=== PATIENT | male | born 1935 | race Caucasian/White ===

== ENCOUNTER 2017-11-03 20:46 | Inpatient (IN) | payer MEDICARE, BC ==
[2017-11-03] MEDS: ONDANSETRON 4 MG INJ IV (21:08)
[2017-11-03] MEDS: morphine 4 MG/ML VIAL IV (21:08)
[2017-11-03 21:25] LABS: ADD MAN DIFF? NO
[2017-11-03 21:26] LABS: BASOPHIL # 0.1 10^3/ul (0.0-0.1); BASOPHILS % 0.4 % (0.0-2.0); EOSINOPHILS # 0.2 10^3/ul (0.0-0.5); EOSINOPHILS % 1.4 % (0.0-7.0); HEMATOCRIT 31.4 % (42.0-52.0); HEMOGLOBIN 9.9 g/dl (14.0-18.0); LYMPHOCYTES # 1.5 10^3/ul (0.8-2.9); LYMPHOCYTES % 10.9 % (15.0-51.0); MEAN CORPUSCULAR HEMOGLOBIN 30.2 pg (29.0-33.0); MEAN CORPUSCULAR HGB CONC 31.5 g/dl (32.0-37.0); MEAN CORPUSCULAR VOLUME 95.7 fl (82.0-101.0); MEAN PLATELET VOLUME 8.4 fl (7.4-10.4); MONOCYTE # 0.9 10^3/ul (0.3-0.9); MONOCYTES % 6.3 % (0.0-11.0); NEUTROPHIL # 11.2 10^3/ul (1.6-7.5); NEUTROPHILS % 79.9 % (39.0-77.0); PLATELET COUNT 292 10^3/UL (140-415); RED BLOOD COUNT 3.28 10^6/ul (4.70-6.10); RED CELL DISTRIBUTION WIDTH 15.9 % (11.5-14.5)
[2017-11-03 21:47] LABS: ALANINE AMINOTRANSFERASE 20 IU/L (13-69); ALBUMIN 3.8 g/dl (3.3-4.9); ALKALINE PHOSPHATASE 83 IU/L (42-121); ANION GAP 20 (8-16); ASPARTATE AMINO TRANSFERASE 13 IU/L (15-46); BLOOD UREA NITROGEN 36 mg/dl (7-20); CALCIUM 8.8 mg/dl (8.4-10.2); CARBON DIOXIDE 30 mmol/L (21-31); CHLORIDE 92 mmol/L (97-110); CREATININE 4.99 mg/dl (0.61-1.24); GLUCOSE 105 mg/dl (70-220); LIPASE 40 U/L (23-300); POTASSIUM 4.5 mmol/L (3.5-5.1); SODIUM 137 mmol/L (135-144); TOTAL PROTEIN 7.6 g/dl (6.1-8.1)
[2017-11-03] MEDS: HYDROmorphONE 1 MG/ML SYG IV (21:56)
[2017-11-04] MEDS: CEFTRIAXONE 1 GM/50 ML (PMX) 50 ML IVPB (00:17)
[2017-11-04] MEDS ORDERED: ACETAMINOPHEN 325 MG TAB PO (00:30)
[2017-11-04] MEDS ORDERED: ONDANSETRON 4 MG INJ IV (00:30)
[2017-11-04] MEDS ORDERED: VANCOMYCIN IV PER PHARMACY XX (01:00)
[2017-11-04] MEDS: VANCOMYCIN 1.25 GM in SOD CHLORIDE 0.45% 250 ML IVPB (01:12)
[2017-11-04 02:10] LABS: IRON 31 ug/dl (35-150)
[2017-11-04 02:11] LABS: MAGNESIUM 1.8 mg/dl (1.7-2.5)
[2017-11-04] MEDS: HYDROmorphONE 1 MG/ML SYG IV ×6 (02:18→23:25)
[2017-11-04 02:20] LABS: % IRON SATURATION 20 % SAT (22-52); TOTAL IRON BINDING CAPACITY 153 ug/dl (241-421)
[2017-11-04] MEDS: PANTOPRAZOLE (EC) 40 MG TAB PO (06:30)
[2017-11-04] MEDS: ALBUTEROL 0.083% (NEB) 2.5 MG/3 ML AMP HHN ×2 (08:00→15:56)
[2017-11-04] MEDS: IPRATROPIUM (NEB) 0.5 MG/2.5 ML AMP HHN ×2 (08:00→15:56)
[2017-11-04] MEDS: ONDANSETRON 4 MG INJ IV (09:36)
[2017-11-04] MEDS: CYANOCOBALAMIN 500 MCG TAB PO (09:41)
[2017-11-04] MEDS: FOLIC ACID 1 MG TAB PO (09:41)
[2017-11-04] MEDS: ASPIRIN (EC) 81 MG TAB PO (09:41)
[2017-11-04] MEDS: NIFEdipine (XL) 30 MG TAB PO ×2 (09:41→20:46)
[2017-11-04] MEDS: VALSARTAN 160 MG TAB PO (09:41)
[2017-11-04] MEDS: TIOTROPIUM 18 MCG CAPSULE INHA DEV INH (09:42)
[2017-11-04 09:47] LABS: ADD MAN DIFF? NO
[2017-11-04 10:00] LABS: WHITE BLOOD COUNT 16.1 10^3/ul (4.8-10.8)
[2017-11-04 10:00] LABS: BASOPHIL # 0.1 10^3/ul (0.0-0.1); BASOPHILS % 0.4 % (0.0-2.0); EOSINOPHILS # 0.4 10^3/ul (0.0-0.5); EOSINOPHILS % 2.4 % (0.0-7.0); HEMATOCRIT 32.1 % (42.0-52.0); LYMPHOCYTES # 2.5 10^3/ul (0.8-2.9); LYMPHOCYTES % 15.3 % (15.0-51.0); MEAN CORPUSCULAR HEMOGLOBIN 30.1 pg (29.0-33.0); MEAN CORPUSCULAR HGB CONC 31.2 g/dl (32.0-37.0); MEAN CORPUSCULAR VOLUME 96.7 fl (82.0-101.0); MONOCYTE # 1.2 10^3/ul (0.3-0.9); MONOCYTES % 7.7 % (0.0-11.0); NEUTROPHIL # 11.8 10^3/ul (1.6-7.5); NEUTROPHILS % 73.3 % (39.0-77.0); PLATELET COUNT 318 10^3/UL (140-415); RED BLOOD COUNT 3.32 10^6/ul (4.70-6.10)
[2017-11-04 10:23] LABS: ANION GAP 22 (8-16); BLOOD UREA NITROGEN 42 mg/dl (7-20); CALCIUM 8.7 mg/dl (8.4-10.2); CARBON DIOXIDE 28 mmol/L (21-31); CHLORIDE 93 mmol/L (97-110); CREATININE 5.85 mg/dl (0.61-1.24); GLUCOSE 84 mg/dl (70-220); SODIUM 138 mmol/L (135-144)
[2017-11-04] MEDS: ACETAMINOPHEN 325 MG TAB PO (12:12)
[2017-11-04] MEDS: ATORVASTATIN 80 MG TAB PO (20:46)
[2017-11-04] MEDS: TAMSULOSIN (SR) 0.4 MG CAP PO (20:46)
[2017-11-05] MEDS: HYDROmorphONE 1 MG/ML SYG IV ×3 (03:12→09:48)
[2017-11-05] MEDS: PANTOPRAZOLE (EC) 40 MG TAB PO (06:09)
[2017-11-05 06:22] LABS: ADD MAN DIFF? NO
[2017-11-05 06:37] LABS: WHITE BLOOD COUNT 15.7 10^3/ul (4.8-10.8)
[2017-11-05 06:37] LABS: BASOPHIL # 0.1 10^3/ul (0.0-0.1); BASOPHILS % 0.4 % (0.0-2.0); EOSINOPHILS # 0.3 10^3/ul (0.0-0.5); HEMATOCRIT 28.6 % (42.0-52.0); HEMOGLOBIN 8.9 g/dl (14.0-18.0); LYMPHOCYTES % 12.7 % (15.0-51.0); MEAN CORPUSCULAR HGB CONC 31.1 g/dl (32.0-37.0); MEAN CORPUSCULAR VOLUME 96.3 fl (82.0-101.0); MEAN PLATELET VOLUME 8.8 fl (7.4-10.4); MONOCYTE # 1.1 10^3/ul (0.3-0.9); MONOCYTES % 7.1 % (0.0-11.0); NEUTROPHIL # 12.1 10^3/ul (1.6-7.5); NEUTROPHILS % 76.7 % (39.0-77.0); PLATELET COUNT 296 10^3/UL (140-415); RED BLOOD COUNT 2.97 10^6/ul (4.70-6.10); RED CELL DISTRIBUTION WIDTH 15.6 % (11.5-14.5)
[2017-11-05 07:12] LABS: ANION GAP 21 (8-16); BLOOD UREA NITROGEN 62 mg/dl (7-20); CALCIUM 8.6 mg/dl (8.4-10.2); CARBON DIOXIDE 28 mmol/L (21-31); CHLORIDE 92 mmol/L (97-110); CREATININE 7.58 mg/dl (0.61-1.24); GLUCOSE 87 mg/dl (70-220); PHOSPHORUS 6.8 mg/dl (2.5-4.9); SODIUM 135 mmol/L (135-144)
[2017-11-05 07:13] LABS: POTASSIUM 5.5 mmol/L (3.5-5.1)
[2017-11-05] MEDS: ALBUTEROL 0.083% (NEB) 2.5 MG/3 ML AMP HHN ×2 (08:33→16:33)
[2017-11-05] MEDS: IPRATROPIUM (NEB) 0.5 MG/2.5 ML AMP HHN ×2 (08:33→16:33)
[2017-11-05] MEDS: CYANOCOBALAMIN 500 MCG TAB PO (08:55)
[2017-11-05] MEDS: ASPIRIN (EC) 81 MG TAB PO (08:55)
[2017-11-05] MEDS: TIOTROPIUM 18 MCG CAPSULE INHA DEV INH (08:55)
[2017-11-05] MEDS: oxyCODONE (CR) 20 MG TAB [oxyCONTIN] PO (08:55)
[2017-11-05] MEDS: FOLIC ACID 1 MG TAB PO (08:55)
[2017-11-05] MEDS: NIFEdipine (XL) 30 MG TAB PO ×2 (09:00→21:00)
[2017-11-05] MEDS: VALSARTAN 160 MG TAB PO (09:00)
[2017-11-05 10:47] LABS: AADO2 Arterial 61.5 mmHg (7.0-24.0); Allen Test ACCEPTAB; Arterial Base Excess 4.1 mmol/L (-3.0-3); Arterial Blood Gas Oxygen Sat 95.7 mmHG (95.0-100.0); Arterial COHb 1.8 % (0.0-3.0); Arterial Fraction of Oxyhgb 93.7 % (93.0-99.0); Arterial MetHb 0.3 % (0.0-1.5); Arterial Total Hemglobin 9.7 g/dl (12.0-18.0); Arterial pCO2 45.6 mmhg (35-45); MODE NASAL CANNULA; Site Right Radial
[2017-11-05] MEDS: HYDROCODONE/APAP (5/325) TAB PO (11:20)
[2017-11-05] MEDS: METHADONE (1 MG/1 ML PO SYG) PO ×3 (13:28→23:03)
[2017-11-05] MEDS: ACETAMINOPHEN 1000MG/100ML IV 100 ML IVPB (14:27)
[2017-11-05] MEDS: HYDROmorphONE 0.2 MG/ML PCA IV (16:38)
[2017-11-05] MEDS: TAMSULOSIN (SR) 0.4 MG CAP PO (21:06)
[2017-11-05] MEDS: ATORVASTATIN 80 MG TAB PO (21:06)
[2017-11-05] MEDS: ACETAMINOPHEN 325 MG TAB PO (21:06)
[2017-11-05 21:13] LABS: HEPATITIS B SURFACE ANTIGEN NEGATIVE (NEGATIVE)
[2017-11-05 21:31] LABS: HEPATITIS B SURFACE ANTIBODY POSITIVE (NEGATIVE)
[2017-11-06] MEDS: NIFEdipine (XL) 30 MG TAB PO ×3 (00:53→21:10)
[2017-11-06] MEDS: HYDROmorphONE 0.2 MG/ML PCA IV ×2 (05:23→20:58)
[2017-11-06] MEDS: PANTOPRAZOLE (EC) 40 MG TAB PO (06:05)
[2017-11-06] MEDS: METHADONE (1 MG/1 ML PO SYG) PO ×3 (06:05→23:54)
[2017-11-06 06:09] LABS: ADD MAN DIFF? NO
[2017-11-06 06:15] LABS: WHITE BLOOD COUNT 13.1 10^3/ul (4.8-10.8)
[2017-11-06 06:15] LABS: BASOPHIL # 0.1 10^3/ul (0.0-0.1); BASOPHILS % 0.5 % (0.0-2.0); EOSINOPHILS # 0.3 10^3/ul (0.0-0.5); EOSINOPHILS % 2.4 % (0.0-7.0); HEMATOCRIT 33.1 % (42.0-52.0); HEMOGLOBIN 10.4 g/dl (14.0-18.0); LYMPHOCYTES # 1.6 10^3/ul (0.8-2.9); LYMPHOCYTES % 12.1 % (15.0-51.0); MEAN CORPUSCULAR HEMOGLOBIN 30.4 pg (29.0-33.0); MEAN CORPUSCULAR HGB CONC 31.4 g/dl (32.0-37.0); MEAN CORPUSCULAR VOLUME 96.8 fl (82.0-101.0); MEAN PLATELET VOLUME 8.7 fl (7.4-10.4); MONOCYTES % 7.5 % (0.0-11.0); NEUTROPHIL # 10.1 10^3/ul (1.6-7.5); NEUTROPHILS % 76.9 % (39.0-77.0); PLATELET COUNT 312 10^3/UL (140-415); RED BLOOD COUNT 3.42 10^6/ul (4.70-6.10); RED CELL DISTRIBUTION WIDTH 15.9 % (11.5-14.5)
[2017-11-06 06:51] LABS: ANION GAP 19 (8-16); BLOOD UREA NITROGEN 35 mg/dl (7-20); CALCIUM 8.9 mg/dl (8.4-10.2); CARBON DIOXIDE 31 mmol/L (21-31); CHLORIDE 96 mmol/L (97-110); GLUCOSE 94 mg/dl (70-220); PHOSPHORUS 4.9 mg/dl (2.5-4.9); POTASSIUM 4.5 mmol/L (3.5-5.1); SODIUM 141 mmol/L (135-144)
[2017-11-06 07:49] LABS: VANCOMYCIN,RANDOM 17.8 ug/ml
[2017-11-06] MEDS: TIOTROPIUM 18 MCG CAPSULE INHA DEV INH (09:23)
[2017-11-06] MEDS: ALBUTEROL 0.083% (NEB) 2.5 MG/3 ML AMP HHN ×2 (09:24→15:28)
[2017-11-06] MEDS: IPRATROPIUM (NEB) 0.5 MG/2.5 ML AMP HHN ×2 (09:24→15:28)
[2017-11-06] MEDS: BISACODYL (EC) 5 MG TAB PO ×2 (09:24→21:09)
[2017-11-06] MEDS: ASPIRIN (EC) 81 MG TAB PO (09:24)
[2017-11-06] MEDS: VALSARTAN 160 MG TAB PO (09:24)
[2017-11-06] MEDS: FOLIC ACID 1 MG TAB PO (09:24)
[2017-11-06] MEDS: CYANOCOBALAMIN 500 MCG TAB PO (09:25)
[2017-11-06] MEDS: ACETAMINOPHEN 325 MG TAB PO (18:09)
[2017-11-06] MEDS: TAMSULOSIN (SR) 0.4 MG CAP PO (21:07)
[2017-11-06] MEDS: ATORVASTATIN 80 MG TAB PO (21:10)
[2017-11-06] MEDS: VANCOMYCIN 1 GM 250 ML IVPB (23:54)
[2017-11-07] MEDS: SOD FERRIC GLUC COMPLX 125 MG in SOD CHLORIDE 0.9% 100 ML IVPB (03:15)
[2017-11-07] MEDS: ACETAMINOPHEN 325 MG TAB PO (04:38)
[2017-11-07] MEDS: PANTOPRAZOLE (EC) 40 MG TAB PO (06:04)
[2017-11-07] MEDS: METHADONE (1 MG/1 ML PO SYG) PO ×3 (06:04→21:25)
[2017-11-07 08:48] LABS: ADD MAN DIFF? NO
[2017-11-07 08:52] LABS: BASOPHIL # 0.1 10^3/ul (0.0-0.1); BASOPHILS % 0.4 % (0.0-2.0); EOSINOPHILS # 0.3 10^3/ul (0.0-0.5); EOSINOPHILS % 2.1 % (0.0-7.0); HEMATOCRIT 28.8 % (42.0-52.0); HEMOGLOBIN 9.1 g/dl (14.0-18.0); LYMPHOCYTES # 1.8 10^3/ul (0.8-2.9); LYMPHOCYTES % 12.9 % (15.0-51.0); MEAN CORPUSCULAR HEMOGLOBIN 30.3 pg (29.0-33.0); MEAN CORPUSCULAR HGB CONC 31.6 g/dl (32.0-37.0); MEAN PLATELET VOLUME 8.5 fl (7.4-10.4); MONOCYTES % 7.6 % (0.0-11.0); NEUTROPHIL # 10.4 10^3/ul (1.6-7.5); NEUTROPHILS % 76.1 % (39.0-77.0); PLATELET COUNT 288 10^3/UL (140-415); RED CELL DISTRIBUTION WIDTH 15.9 % (11.5-14.5)
[2017-11-07 08:52] LABS: WHITE BLOOD COUNT 13.6 10^3/ul (4.8-10.8)
[2017-11-07 09:16] LABS: ANION GAP 19 (8-16); BLOOD UREA NITROGEN 51 mg/dl (7-20); CALCIUM 8.5 mg/dl (8.4-10.2); CARBON DIOXIDE 25 mmol/L (21-31); CHLORIDE 96 mmol/L (97-110); CREATININE 7.93 mg/dl (0.61-1.24); GLUCOSE 96 mg/dl (70-220); PHOSPHORUS 6.4 mg/dl (2.5-4.9); POTASSIUM 4.9 mmol/L (3.5-5.1); SODIUM 135 mmol/L (135-144)
[2017-11-07] MEDS: ALBUTEROL 0.083% (NEB) 2.5 MG/3 ML AMP HHN ×2 (09:29→15:17)
[2017-11-07] MEDS: IPRATROPIUM (NEB) 0.5 MG/2.5 ML AMP HHN ×2 (09:29→15:17)
[2017-11-07] MEDS: CYANOCOBALAMIN 500 MCG TAB PO (12:35)
[2017-11-07] MEDS: NIFEdipine (XL) 30 MG TAB PO ×2 (12:35→20:49)
[2017-11-07] MEDS: FOLIC ACID 1 MG TAB PO (12:35)
[2017-11-07] MEDS: ASPIRIN (EC) 81 MG TAB PO (12:35)
[2017-11-07] MEDS: TIOTROPIUM 18 MCG CAPSULE INHA DEV INH (12:35)
[2017-11-07] MEDS: BISACODYL (EC) 5 MG TAB PO ×2 (12:35→20:50)
[2017-11-07] MEDS: VALSARTAN 160 MG TAB PO (12:35)
[2017-11-07] MEDS: HYDROmorphONE 0.2 MG/ML PCA IV ×2 (14:36→22:55)
[2017-11-07] MEDS: HYDROmorphONE 0.5 MG/0.5 ML SYG IV (14:48)
[2017-11-07] MEDS: TAMSULOSIN (SR) 0.4 MG CAP PO (20:49)
[2017-11-07] MEDS: ATORVASTATIN 80 MG TAB PO (20:50)
[2017-11-08] MEDS: SOD FERRIC GLUC COMPLX 125 MG in SOD CHLORIDE 0.9% 100 ML IVPB (02:03)
[2017-11-08] MEDS: HYDROmorphONE 0.2 MG/ML PCA IV ×2 (03:08→14:57)
[2017-11-08] MEDS: PANTOPRAZOLE (EC) 40 MG TAB PO (06:18)
[2017-11-08] MEDS: METHADONE (1 MG/1 ML PO SYG) PO ×3 (06:18→23:38)
[2017-11-08 06:59] LABS: ADD MAN DIFF? NO
[2017-11-08 07:08] LABS: BASOPHIL # 0.1 10^3/ul (0.0-0.1); BASOPHILS % 0.5 % (0.0-2.0); EOSINOPHILS # 0.3 10^3/ul (0.0-0.5); EOSINOPHILS % 1.9 % (0.0-7.0); HEMATOCRIT 29.1 % (42.0-52.0); LYMPHOCYTES # 1.8 10^3/ul (0.8-2.9); LYMPHOCYTES % 13.2 % (15.0-51.0); MEAN CORPUSCULAR HEMOGLOBIN 29.8 pg (29.0-33.0); MEAN CORPUSCULAR HGB CONC 30.9 g/dl (32.0-37.0); MEAN CORPUSCULAR VOLUME 96.4 fl (82.0-101.0); MEAN PLATELET VOLUME 8.6 fl (7.4-10.4); MONOCYTE # 1.1 10^3/ul (0.3-0.9); MONOCYTES % 7.9 % (0.0-11.0); NEUTROPHIL # 10.2 10^3/ul (1.6-7.5); NEUTROPHILS % 75.8 % (39.0-77.0); PLATELET COUNT 265 10^3/UL (140-415); RED BLOOD COUNT 3.02 10^6/ul (4.70-6.10); RED CELL DISTRIBUTION WIDTH 15.7 % (11.5-14.5)
[2017-11-08 07:08] LABS: WHITE BLOOD COUNT 13.4 10^3/ul (4.8-10.8)
[2017-11-08 07:35] LABS: ANION GAP 22 (8-16); BLOOD UREA NITROGEN 65 mg/dl (7-20); CALCIUM 8.4 mg/dl (8.4-10.2); CARBON DIOXIDE 23 mmol/L (21-31); CHLORIDE 97 mmol/L (97-110); CREATININE 9.26 mg/dl (0.61-1.24); GLUCOSE 86 mg/dl (70-220); PHOSPHORUS 7.2 mg/dl (2.5-4.9); SODIUM 137 mmol/L (135-144)
[2017-11-08 07:40] LABS: POTASSIUM 5.3 mmol/L (3.5-5.1)
[2017-11-08] MEDS: ALBUTEROL 0.083% (NEB) 2.5 MG/3 ML AMP HHN ×2 (08:14→16:07)
[2017-11-08] MEDS: IPRATROPIUM (NEB) 0.5 MG/2.5 ML AMP HHN ×2 (08:14→16:07)
[2017-11-08] MEDS: ASPIRIN (EC) 81 MG TAB PO (15:00)
[2017-11-08] MEDS: VALSARTAN 160 MG TAB PO (15:00)
[2017-11-08] MEDS: FOLIC ACID 1 MG TAB PO (15:00)
[2017-11-08] MEDS: NIFEdipine (XL) 30 MG TAB PO ×2 (15:00→20:50)
[2017-11-08] MEDS: CYANOCOBALAMIN 500 MCG TAB PO (15:00)
[2017-11-08] MEDS: TIOTROPIUM 18 MCG CAPSULE INHA DEV INH (15:00)
[2017-11-08] MEDS: BISACODYL (EC) 5 MG TAB PO ×2 (15:00→20:49)
[2017-11-08] MEDS: EPOETIN 10000 UNITS/1 ML INJ (ESRD) SC (18:24)
[2017-11-08] MEDS: ATORVASTATIN 80 MG TAB PO (20:48)
[2017-11-08] MEDS: TAMSULOSIN (SR) 0.4 MG CAP PO (20:49)
[2017-11-08] MEDS: GABAPENTIN 400 MG CAP PO (20:49)
[2017-11-09] MEDS: SOD FERRIC GLUC COMPLX 125 MG in SOD CHLORIDE 0.9% 100 ML IVPB (05:02)
[2017-11-09] MEDS: METHADONE (1 MG/1 ML PO SYG) PO ×3 (06:50→21:27)
[2017-11-09] MEDS: PANTOPRAZOLE (EC) 40 MG TAB PO (06:50)
[2017-11-09 07:13] LABS: VANCOMYCIN,RANDOM 20.6 ug/ml
[2017-11-09] MEDS: IPRATROPIUM (NEB) 0.5 MG/2.5 ML AMP HHN ×2 (07:57→15:38)
[2017-11-09] MEDS: ALBUTEROL 0.083% (NEB) 2.5 MG/3 ML AMP HHN ×2 (07:58→15:38)
[2017-11-09] MEDS: CYANOCOBALAMIN 500 MCG TAB PO (09:00)
[2017-11-09] MEDS: TIOTROPIUM 18 MCG CAPSULE INHA DEV INH (09:00)
[2017-11-09] MEDS: BISACODYL (EC) 5 MG TAB PO ×2 (09:00→20:25)
[2017-11-09] MEDS: GABAPENTIN 400 MG CAP PO ×3 (09:00→20:25)
[2017-11-09] MEDS: NIFEdipine (XL) 30 MG TAB PO ×2 (09:00→20:25)
[2017-11-09] MEDS: VALSARTAN 160 MG TAB PO (09:00)
[2017-11-09] MEDS: FOLIC ACID 1 MG TAB PO (09:00)
[2017-11-09] MEDS: ASPIRIN (EC) 81 MG TAB PO (09:00)
[2017-11-09 10:16] LABS: INR 1.12; PARTIAL THROMBOPLASTIN TIME 43.1 Sec (25.0-35.0); PROTIME 14.6 Sec (11.9-14.9); PT RATIO 1.1
[2017-11-09] MEDS: HYDROmorphONE 0.2 MG/ML PCA IV (15:12)
[2017-11-09] MEDS: TAMSULOSIN (SR) 0.4 MG CAP PO (20:25)
[2017-11-09] MEDS: ATORVASTATIN 80 MG TAB PO (20:25)
[2017-11-10] MEDS: HYDROmorphONE 0.2 MG/ML PCA IV ×2 (02:30→14:46)
[2017-11-10] MEDS: PANTOPRAZOLE (EC) 40 MG TAB PO (05:54)
[2017-11-10] MEDS: METHADONE (1 MG/1 ML PO SYG) PO ×3 (05:54→21:28)
[2017-11-10] MEDS ORDERED: ALBUMIN HUMAN 25% 50 ML IV (07:30)
[2017-11-10 08:22] LABS: ADD MAN DIFF? NO
[2017-11-10 08:33] LABS: BASOPHIL # 0.1 10^3/ul (0.0-0.1); BASOPHILS % 0.4 % (0.0-2.0); EOSINOPHILS # 0.3 10^3/ul (0.0-0.5); HEMATOCRIT 29.6 % (42.0-52.0); HEMOGLOBIN 9.1 g/dl (14.0-18.0); LYMPHOCYTES # 2.3 10^3/ul (0.8-2.9); LYMPHOCYTES % 15.2 % (15.0-51.0); MEAN CORPUSCULAR HEMOGLOBIN 30.5 pg (29.0-33.0); MEAN CORPUSCULAR HGB CONC 30.7 g/dl (32.0-37.0); MEAN CORPUSCULAR VOLUME 99.3 fl (82.0-101.0); MEAN PLATELET VOLUME 8.8 fl (7.4-10.4); MONOCYTE # 1.4 10^3/ul (0.3-0.9); MONOCYTES % 9.2 % (0.0-11.0); NEUTROPHIL # 11.1 10^3/ul (1.6-7.5); NEUTROPHILS % 72.7 % (39.0-77.0); PLATELET COUNT 286 10^3/UL (140-415); RED BLOOD COUNT 2.98 10^6/ul (4.70-6.10); RED CELL DISTRIBUTION WIDTH 15.9 % (11.5-14.5)
[2017-11-10 08:33] LABS: WHITE BLOOD COUNT 15.2 10^3/ul (4.8-10.8)
[2017-11-10] MEDS: BISACODYL (EC) 5 MG TAB PO ×2 (08:58→21:29)
[2017-11-10] MEDS: CYANOCOBALAMIN 500 MCG TAB PO (08:58)
[2017-11-10] MEDS: FOLIC ACID 1 MG TAB PO (08:58)
[2017-11-10] MEDS: NIFEdipine (XL) 30 MG TAB PO ×2 (08:58→21:29)
[2017-11-10] MEDS: ASPIRIN (EC) 81 MG TAB PO (08:58)
[2017-11-10] MEDS: GABAPENTIN 400 MG CAP PO ×3 (08:59→21:29)
[2017-11-10] MEDS: VALSARTAN 160 MG TAB PO (08:59)
[2017-11-10 09:03] LABS: ANION GAP 20 (8-16); BLOOD UREA NITROGEN 55 mg/dl (7-20); CARBON DIOXIDE 28 mmol/L (21-31); CHLORIDE 97 mmol/L (97-110); CREATININE 8.81 mg/dl (0.61-1.24); GLUCOSE 89 mg/dl (70-220); PHOSPHORUS 7.5 mg/dl (2.5-4.9); POTASSIUM 5.4 mmol/L (3.5-5.1); SODIUM 140 mmol/L (135-144)
[2017-11-10] MEDS: ALBUTEROL 0.083% (NEB) 2.5 MG/3 ML AMP HHN ×2 (09:05→16:00)
[2017-11-10] MEDS: IPRATROPIUM (NEB) 0.5 MG/2.5 ML AMP HHN ×2 (09:05→16:00)
[2017-11-10] MEDS: TIOTROPIUM 18 MCG CAPSULE INHA DEV INH (11:57)
[2017-11-10] MEDS: EPOETIN 10000 UNITS/1 ML INJ (ESRD) SC (17:49)
[2017-11-10] MEDS: ATORVASTATIN 80 MG TAB PO (21:29)
[2017-11-10] MEDS: TAMSULOSIN (SR) 0.4 MG CAP PO (21:29)
[2017-11-11] MEDS: VANCOMYCIN 750 MG in DEXTROSE 5% 150 ML IVPB (00:33)
[2017-11-11] MEDS: HYDROmorphONE 0.2 MG/ML PCA IV (02:12)
[2017-11-11] MEDS: METHADONE (1 MG/1 ML PO SYG) PO ×3 (05:52→22:00)
[2017-11-11] MEDS: PANTOPRAZOLE (EC) 40 MG TAB PO (06:38)
[2017-11-11] MEDS: IPRATROPIUM (NEB) 0.5 MG/2.5 ML AMP HHN ×2 (08:12→15:51)
[2017-11-11] MEDS: ALBUTEROL 0.083% (NEB) 2.5 MG/3 ML AMP HHN ×2 (08:12→15:51)
[2017-11-11] MEDS: FOLIC ACID 1 MG TAB PO (08:33)
[2017-11-11] MEDS: ASPIRIN (EC) 81 MG TAB PO (08:33)
[2017-11-11] MEDS: VALSARTAN 160 MG TAB PO (08:33)
[2017-11-11] MEDS: BISACODYL (EC) 5 MG TAB PO ×2 (08:33→20:42)
[2017-11-11] MEDS: CYANOCOBALAMIN 500 MCG TAB PO (08:33)
[2017-11-11] MEDS: GABAPENTIN 400 MG CAP PO ×3 (08:33→20:42)
[2017-11-11] MEDS: NIFEdipine (XL) 30 MG TAB PO ×2 (08:33→20:43)
[2017-11-11] MEDS: TIOTROPIUM 18 MCG CAPSULE INHA DEV INH (08:34)
[2017-11-11] MEDS: ONDANSETRON 4 MG INJ IV (09:22)
[2017-11-11 10:04] LABS: AADO2 Arterial 62.7 mmHg (7.0-24.0); Allen Test ACCEPTAB; Arterial Blood Gas Oxygen Sat 89.7 mmHG (95.0-100.0); Arterial Fraction of Oxyhgb 87.6 % (93.0-99.0); Arterial MetHb 0.3 % (0.0-1.5); Arterial Total Hemglobin 10.2 g/dl (12.0-18.0); Arterial pCO2 57.6 mmhg (35-45); MODE NASAL CANNULA; Site Right Radial
[2017-11-11] MEDS ORDERED: NALOXONE (0.4 MG/ML) INJ (17:48)
[2017-11-11] MEDS: NALOXONE (0.4 MG/ML) INJ IV (18:02)
[2017-11-11] MEDS: ATORVASTATIN 80 MG TAB PO (20:42)
[2017-11-11] MEDS: TAMSULOSIN (SR) 0.4 MG CAP PO (20:42)
[2017-11-12] MEDS ORDERED: PENDING SANTYL ORDER FOR WOUND CARE XX (03:00)
[2017-11-12] MEDS: METHADONE (1 MG/1 ML PO SYG) PO (05:28)
[2017-11-12] MEDS: PANTOPRAZOLE (EC) 40 MG TAB PO (05:28)
[2017-11-12] MEDS: ACETAMINOPHEN 325 MG TAB PO (05:35)
[2017-11-12 06:38] LABS: ADD MAN DIFF? NO
[2017-11-12 06:43] LABS: WHITE BLOOD COUNT 14.4 10^3/ul (4.8-10.8)
[2017-11-12 06:43] LABS: BASOPHILS % 0.2 % (0.0-2.0); EOSINOPHILS % 0.3 % (0.0-7.0); HEMATOCRIT 27.6 % (42.0-52.0); HEMOGLOBIN 8.5 g/dl (14.0-18.0); LYMPHOCYTES # 1.1 10^3/ul (0.8-2.9); LYMPHOCYTES % 7.9 % (15.0-51.0); MEAN CORPUSCULAR HGB CONC 30.8 g/dl (32.0-37.0); MEAN CORPUSCULAR VOLUME 97.5 fl (82.0-101.0); MONOCYTE # 1.1 10^3/ul (0.3-0.9); MONOCYTES % 7.4 % (0.0-11.0); NEUTROPHILS % 83.6 % (39.0-77.0); PLATELET COUNT 250 10^3/UL (140-415); RED BLOOD COUNT 2.83 10^6/ul (4.70-6.10); RED CELL DISTRIBUTION WIDTH 15.9 % (11.5-14.5)
[2017-11-12 07:08] LABS: ALANINE AMINOTRANSFERASE 31 IU/L (13-69); ALBUMIN 3.5 g/dl (3.3-4.9); ALBUMIN/GLOBULIN RATIO 1.09; ALKALINE PHOSPHATASE 79 IU/L (42-121); ANION GAP 16 (8-16); ASPARTATE AMINO TRANSFERASE 19 IU/L (15-46); BILIRUBIN,INDIRECT 0.1 mg/dl (0-1.1); BILIRUBIN,TOTAL 0.1 mg/dl (0.2-1.3); BLOOD UREA NITROGEN 24 mg/dl (7-20); CALCIUM 8.9 mg/dl (8.4-10.2); CARBON DIOXIDE 34 mmol/L (21-31); CHLORIDE 95 mmol/L (97-110); CREATININE 3.95 mg/dl (0.61-1.24); GLUCOSE 102 mg/dl (70-220); POTASSIUM 3.8 mmol/L (3.5-5.1); SODIUM 141 mmol/L (135-144); TOTAL PROTEIN 6.7 g/dl (6.1-8.1)
[2017-11-12] MEDS: ALBUTEROL 0.083% (NEB) 2.5 MG/3 ML AMP HHN ×2 (08:33→14:45)
[2017-11-12] MEDS: IPRATROPIUM (NEB) 0.5 MG/2.5 ML AMP HHN ×2 (08:33→14:45)
[2017-11-12] MEDS: TIOTROPIUM 18 MCG CAPSULE INHA DEV INH (09:00)
[2017-11-12] MEDS: GABAPENTIN 400 MG CAP PO ×3 (09:00→21:36)
[2017-11-12] MEDS: FOLIC ACID 1 MG TAB PO (09:00)
[2017-11-12] MEDS: VALSARTAN 160 MG TAB PO (09:00)
[2017-11-12] MEDS: BISACODYL (EC) 5 MG TAB PO ×2 (09:00→21:36)
[2017-11-12] MEDS: ASPIRIN (EC) 81 MG TAB PO (09:00)
[2017-11-12] MEDS: NIFEdipine (XL) 30 MG TAB PO ×2 (09:00→21:37)
[2017-11-12] MEDS: CYANOCOBALAMIN 500 MCG TAB PO (09:00)
[2017-11-12 13:41] LABS: AADO2 Arterial 75.6 mmHg (7.0-24.0); Arterial Base Excess 6.7 mmol/L (-3.0-3); Arterial Blood Gas Oxygen Sat 93.5 mmHG (95.0-100.0); Arterial COHb 1.7 % (0.0-3.0); Arterial Fraction of Oxyhgb 91.6 % (93.0-99.0); Arterial HCO3 31.7 mmol/L (22.0-26.0); Arterial MetHb 0.3 % (0.0-1.5); Arterial Total Hemglobin 8.7 g/dl (12.0-18.0); MODE NASAL CANNULA; Site Right Brachial
[2017-11-12] MEDS: EPOETIN 10000 UNITS/1 ML INJ (ESRD) SC (17:00)
[2017-11-12] MEDS: ATORVASTATIN 80 MG TAB PO (21:36)
[2017-11-12] MEDS: TAMSULOSIN (SR) 0.4 MG CAP PO (21:36)
[2017-11-13] MEDS: ACETAMINOPHEN 325 MG TAB PO (00:01)
[2017-11-13] MEDS: PANTOPRAZOLE (EC) 40 MG TAB PO (06:34)
[2017-11-13 07:14] LABS: WHITE BLOOD COUNT 14.9 10^3/ul (4.8-10.8)
[2017-11-13 07:14] LABS: ABNORMAL IP MESSAGE 1; HEMATOCRIT 25.4 % (42.0-52.0); MEAN CORPUSCULAR HGB CONC 31.5 g/dl (32.0-37.0); MEAN CORPUSCULAR VOLUME 98.4 fl (82.0-101.0); MEAN PLATELET VOLUME 9.5 fl (7.4-10.4); PLATELET COUNT 251 10^3/UL (140-415); POSITIVE DIFF @See below; RED BLOOD COUNT 2.58 10^6/ul (4.70-6.10); RED CELL DISTRIBUTION WIDTH 16.3 % (11.5-14.5)
[2017-11-13 07:21] LABS: ADD MAN DIFF? YES
[2017-11-13 07:26] LABS: ALANINE AMINOTRANSFERASE 27 IU/L (13-69); ALBUMIN 3.1 g/dl (3.3-4.9); ALBUMIN/GLOBULIN RATIO 0.91; ALKALINE PHOSPHATASE 72 IU/L (42-121); ANION GAP 14 (8-16); ASPARTATE AMINO TRANSFERASE 21 IU/L (15-46); BLOOD UREA NITROGEN 22 mg/dl (7-20); CALCIUM 8.8 mg/dl (8.4-10.2); CARBON DIOXIDE 34 mmol/L (21-31); CHLORIDE 97 mmol/L (97-110); CREATININE 3.59 mg/dl (0.61-1.24); GLUCOSE 133 mg/dl (70-220); PHOSPHORUS 4.1 mg/dl (2.5-4.9); POTASSIUM 3.7 mmol/L (3.5-5.1); SODIUM 141 mmol/L (135-144); TOTAL PROTEIN 6.5 g/dl (6.1-8.1)
[2017-11-13] MEDS: ALBUTEROL 0.083% (NEB) 2.5 MG/3 ML AMP HHN ×2 (07:54→17:11)
[2017-11-13] MEDS: IPRATROPIUM (NEB) 0.5 MG/2.5 ML AMP HHN ×2 (07:54→17:11)
[2017-11-13] MEDS: VALSARTAN 160 MG TAB PO (09:00)
[2017-11-13] MEDS: NIFEdipine (XL) 30 MG TAB PO ×2 (09:00→22:33)
[2017-11-13] MEDS: BISACODYL (EC) 5 MG TAB PO ×2 (09:49→22:32)
[2017-11-13] MEDS: FOLIC ACID 1 MG TAB PO (09:49)
[2017-11-13] MEDS: ASPIRIN (EC) 81 MG TAB PO (09:49)
[2017-11-13] MEDS: CYANOCOBALAMIN 500 MCG TAB PO (09:49)
[2017-11-13] MEDS: TIOTROPIUM 18 MCG CAPSULE INHA DEV INH (09:49)
[2017-11-13] MEDS: GABAPENTIN 400 MG CAP PO ×3 (09:49→22:32)
[2017-11-13 10:13] LABS: ANISOCYTOSIS 2+ (0-0); BAND NEUTROPHILS #M 0.2 10^3/ul (0.0-0.6); BAND NEUTROPHILS % (M) 2 % (0-4); BASOPHIL #M 0.1 10^3/ul (0.0-0.0); BASOPHILS % (M) 1 % (0-2); GIANT THROMBO% (M) 1 % (0-0); HYPOCHROMASIA 1+ (0-0); LYMPHOCYTES % (M) 7 % (15-51); MONOCYTE #M 1.3 10^3/ul (0.3-0.9); MONOCYTES % (M) 9 % (0-11); OVALOCYTES 1+ (0-0); PLATELET ESTIMATE NORMAL; POIKILOCYTOSIS 1+ (0-0); POLYCHROMASIA 2+ (0-0); SEG NEUT #M 12.1 10^3/ul (1.7-7.5); SEGMENTED NEUTROPHILS (M) % 81 % (39-77); SMUDGE%M 9 % (0-0)
[2017-11-13] MEDS: TAMSULOSIN (SR) 0.4 MG CAP PO (22:32)
[2017-11-13] MEDS: ATORVASTATIN 80 MG TAB PO (22:32)
[2017-11-14 05:09] LABS: ADD MAN DIFF? NO
[2017-11-14 05:22] LABS: WHITE BLOOD COUNT 17.6 10^3/ul (4.8-10.8)
[2017-11-14 05:22] LABS: ABNORMAL IP MESSAGE 1; BASOPHILS % 0.2 % (0.0-2.0); EOSINOPHILS # 0.2 10^3/ul (0.0-0.5); HEMATOCRIT 28.1 % (42.0-52.0); HEMOGLOBIN 8.5 g/dl (14.0-18.0); LYMPHOCYTES # 1.7 10^3/ul (0.8-2.9); LYMPHOCYTES % 9.4 % (15.0-51.0); MEAN CORPUSCULAR HEMOGLOBIN 29.8 pg (29.0-33.0); MEAN CORPUSCULAR HGB CONC 30.2 g/dl (32.0-37.0); MEAN CORPUSCULAR VOLUME 98.6 fl (82.0-101.0); MEAN PLATELET VOLUME 9.5 fl (7.4-10.4); MONOCYTE # 1.8 10^3/ul (0.3-0.9); MONOCYTES % 9.9 % (0.0-11.0); NEUTROPHIL # 13.8 10^3/ul (1.6-7.5); NEUTROPHILS % 78.2 % (39.0-77.0); PLATELET COUNT 282 10^3/UL (140-415); POSITIVE DIFF @See below; RED BLOOD COUNT 2.85 10^6/ul (4.70-6.10); RED CELL DISTRIBUTION WIDTH 16.2 % (11.5-14.5)
[2017-11-14 05:49] LABS: ALANINE AMINOTRANSFERASE 35 IU/L (13-69); ALBUMIN 3.2 g/dl (3.3-4.9); ALBUMIN/GLOBULIN RATIO 0.91; ALKALINE PHOSPHATASE 79 IU/L (42-121); ANION GAP 16 (8-16); ASPARTATE AMINO TRANSFERASE 28 IU/L (15-46); BLOOD UREA NITROGEN 43 mg/dl (7-20); CALCIUM 8.8 mg/dl (8.4-10.2); CARBON DIOXIDE 31 mmol/L (21-31); CHLORIDE 96 mmol/L (97-110); GLUCOSE 113 mg/dl (70-220); SODIUM 139 mmol/L (135-144); TOTAL PROTEIN 6.7 g/dl (6.1-8.1)
[2017-11-14] MEDS: PANTOPRAZOLE (EC) 40 MG TAB PO (06:03)
[2017-11-14 06:24] LABS: VANCOMYCIN,RANDOM 15.5 ug/ml
[2017-11-14] MEDS: IPRATROPIUM (NEB) 0.5 MG/2.5 ML AMP HHN ×2 (07:56→15:29)
[2017-11-14] MEDS: ALBUTEROL 0.083% (NEB) 2.5 MG/3 ML AMP HHN ×2 (07:56→15:29)
[2017-11-14 09:21] LABS: AADO2 Arterial 83.9 mmHg (7.0-24.0); Allen Test ACCEPTAB; Arterial Base Excess 5.5 mmol/L (-3.0-3); Arterial Blood Gas Oxygen Sat 91.2 mmHG (95.0-100.0); Arterial COHb 1.5 % (0.0-3.0); Arterial Fraction of Oxyhgb 89.6 % (93.0-99.0); Arterial HCO3 29.7 mmol/L (22.0-26.0); Arterial MetHb 0.3 % (0.0-1.5); Arterial Total Hemglobin 9.1 g/dl (12.0-18.0); Arterial pCO2 41.6 mmhg (35-45); MODE NASAL CANNULA; Site Right Radial
[2017-11-14] MEDS: NIFEdipine (XL) 30 MG TAB PO ×2 (09:23→20:42)
[2017-11-14] MEDS: VALSARTAN 160 MG TAB PO (09:23)
[2017-11-14] MEDS: FOLIC ACID 1 MG TAB PO (09:24)
[2017-11-14] MEDS: BISACODYL (EC) 5 MG TAB PO ×2 (09:24→20:42)
[2017-11-14] MEDS: CYANOCOBALAMIN 500 MCG TAB PO (09:24)
[2017-11-14] MEDS: ASPIRIN (EC) 81 MG TAB PO (09:24)
[2017-11-14] MEDS: GABAPENTIN 400 MG CAP PO ×3 (09:24→20:41)
[2017-11-14] MEDS: ACETAMINOPHEN 325 MG TAB PO (09:29)
[2017-11-14] MEDS: TIOTROPIUM 18 MCG CAPSULE INHA DEV INH (09:58)
[2017-11-14] MEDS: VANCOMYCIN 750 MG in DEXTROSE 5% 150 ML IVPB (19:49)
[2017-11-14] MEDS: ATORVASTATIN 80 MG TAB PO (20:41)
[2017-11-14] MEDS: TAMSULOSIN (SR) 0.4 MG CAP PO (20:41)
[2017-11-15] MEDS: PANTOPRAZOLE (EC) 40 MG TAB PO (06:09)
[2017-11-15 07:42] LABS: ABNORMAL IP MESSAGE 1; HEMATOCRIT 26.3 % (42.0-52.0); HEMOGLOBIN 8.3 g/dl (14.0-18.0); MEAN CORPUSCULAR HEMOGLOBIN 30.5 pg (29.0-33.0); MEAN CORPUSCULAR HGB CONC 31.6 g/dl (32.0-37.0); MEAN CORPUSCULAR VOLUME 96.7 fl (82.0-101.0); MEAN PLATELET VOLUME 9.9 fl (7.4-10.4); NUCLEATED RED BLOOD CELLS% 0.1 /100WBC (0.0-0.0); PLATELET COUNT 315 10^3/UL (140-415); POSITIVE DIFF @See below; RED BLOOD COUNT 2.72 10^6/ul (4.70-6.10); RED CELL DISTRIBUTION WIDTH 16.2 % (11.5-14.5)
[2017-11-15 07:42] LABS: WHITE BLOOD COUNT 24.4 10^3/ul (4.8-10.8)
[2017-11-15 07:51] LABS: ADD MAN DIFF? YES
[2017-11-15 07:53] LABS: ANION GAP 21 (8-16); BLOOD UREA NITROGEN 64 mg/dl (7-20); CALCIUM 8.7 mg/dl (8.4-10.2); CARBON DIOXIDE 27 mmol/L (21-31); CHLORIDE 92 mmol/L (97-110); CREATININE 7.49 mg/dl (0.61-1.24); GLUCOSE 135 mg/dl (70-220); POTASSIUM 4.6 mmol/L (3.5-5.1); SODIUM 135 mmol/L (135-144)
[2017-11-15] MEDS: IPRATROPIUM (NEB) 0.5 MG/2.5 ML AMP HHN ×2 (08:08→16:19)
[2017-11-15] MEDS: ALBUTEROL 0.083% (NEB) 2.5 MG/3 ML AMP HHN ×2 (08:08→16:19)
[2017-11-15] MEDS: TIOTROPIUM 18 MCG CAPSULE INHA DEV INH (08:57)
[2017-11-15] MEDS: BISACODYL (EC) 5 MG TAB PO ×2 (08:59→21:00)
[2017-11-15] MEDS: FOLIC ACID 1 MG TAB PO (08:59)
[2017-11-15] MEDS: NIFEdipine (XL) 30 MG TAB PO ×2 (08:59→21:00)
[2017-11-15] MEDS: ASPIRIN (EC) 81 MG TAB PO (08:59)
[2017-11-15] MEDS: CYANOCOBALAMIN 500 MCG TAB PO (09:00)
[2017-11-15] MEDS: VALSARTAN 160 MG TAB PO (09:00)
[2017-11-15] MEDS: GABAPENTIN 400 MG CAP PO ×3 (09:00→21:00)
[2017-11-15 09:47] LABS: ANISOCYTOSIS 1+ (0-0); BAND NEUTROPHILS #M 1.9 10^3/ul (0.0-0.6); BAND NEUTROPHILS % (M) 8 % (0-4); EOSINOPHILS % (M) 1 % (0-7); LYMPHOCYTES #M 1.2 10^3/ul (0.8-2.9); LYMPHOCYTES % (M) 5 % (15-51); MICROCYTOSIS 1+ (0-0); MONOCYTE #M 1.7 10^3/ul (0.3-0.9); MONOCYTES % (M) 7 % (0-11); PLATELET ESTIMATE NORMAL; POLYCHROMASIA 3+ (0-0); SEG NEUT #M 19.7 10^3/ul (1.7-7.5); SEGMENTED NEUTROPHILS (M) % 79 % (39-77); SMUDGE%M 1 % (0-0)
[2017-11-15] MEDS: ACETAMINOPHEN 325 MG TAB PO (14:35)
[2017-11-15] MEDS: EPOETIN 10000 UNITS/1 ML INJ (ESRD) SC (17:16)
[2017-11-15] MEDS: AMIODARONE 200 MG TAB PO (18:23)
[2017-11-15] MEDS: TAMSULOSIN (SR) 0.4 MG CAP PO (21:00)
[2017-11-15] MEDS: ATORVASTATIN 80 MG TAB PO (21:00)
[2017-11-15] MEDS ORDERED: AMIODARONE 200 MG TAB PO (21:00)
[2017-11-16] MEDS: IPRATROPIUM (NEB) 0.5 MG/2.5 ML AMP HHN ×6 (01:21→21:23)
[2017-11-16] MEDS: ALBUTEROL 0.083% (NEB) 2.5 MG/3 ML AMP HHN ×6 (01:21→21:23)
[2017-11-16 01:25] LABS: AADO2 Arterial 225.2 mmHg (7.0-24.0); Allen Test ACCEPTAB; Arterial Base Excess 5.6 mmol/L (-3.0-3); Arterial Blood Gas Oxygen Sat 98.7 mmHG (95.0-100.0); Arterial Fraction of Oxyhgb 97.4 % (93.0-99.0); Arterial HCO3 30.6 mmol/L (22.0-26.0); Arterial MetHb 0.3 % (0.0-1.5); Arterial pCO2 47.5 mmhg (35-45); MODE MASK - SIMPLE; Site Right Radial
[2017-11-16] MEDS: ALBUMIN HUMAN 25% 100 ML IV (01:52)
[2017-11-16] MEDS: PANTOPRAZOLE (EC) 40 MG TAB PO (07:00)
[2017-11-16 08:28] LABS: ADD MAN DIFF? NO
[2017-11-16 08:32] LABS: WHITE BLOOD COUNT 19.1 10^3/ul (4.8-10.8)
[2017-11-16 08:32] LABS: ABNORMAL IP MESSAGE 1; BASOPHILS % 0.2 % (0.0-2.0); EOSINOPHILS # 0.1 10^3/ul (0.0-0.5); EOSINOPHILS % 0.5 % (0.0-7.0); HEMATOCRIT 24.5 % (42.0-52.0); HEMOGLOBIN 7.4 g/dl (14.0-18.0); LYMPHOCYTES # 1.2 10^3/ul (0.8-2.9); LYMPHOCYTES % 6.5 % (15.0-51.0); MEAN CORPUSCULAR HEMOGLOBIN 29.8 pg (29.0-33.0); MEAN CORPUSCULAR HGB CONC 30.2 g/dl (32.0-37.0); MEAN CORPUSCULAR VOLUME 98.8 fl (82.0-101.0); MEAN PLATELET VOLUME 9.9 fl (7.4-10.4); MONOCYTE # 2.3 10^3/ul (0.3-0.9); NEUTROPHIL # 14.9 10^3/ul (1.6-7.5); PLATELET COUNT 269 10^3/UL (140-415); POSITIVE DIFF @See below; RED BLOOD COUNT 2.48 10^6/ul (4.70-6.10)
[2017-11-16 08:59] LABS: ANION GAP 17 (8-16); BLOOD UREA NITROGEN 57 mg/dl (7-20); CALCIUM 8.6 mg/dl (8.4-10.2); CARBON DIOXIDE 30 mmol/L (21-31); CHLORIDE 96 mmol/L (97-110); CREATININE 4.97 mg/dl (0.61-1.24); GLUCOSE 119 mg/dl (70-220); PHOSPHORUS 3.7 mg/dl (2.5-4.9); POTASSIUM 4.5 mmol/L (3.5-5.1); SODIUM 138 mmol/L (135-144)
[2017-11-16] MEDS: FOLIC ACID 1 MG TAB PO (09:00)
[2017-11-16] MEDS: NIFEdipine (XL) 30 MG TAB PO ×2 (09:00→21:00)
[2017-11-16] MEDS: CYANOCOBALAMIN 500 MCG TAB PO (09:00)
[2017-11-16] MEDS: AMIODARONE 200 MG TAB PO ×2 (09:00→21:00)
[2017-11-16] MEDS ORDERED: ALBUMIN HUMAN 25% 50 ML IV (09:00)
[2017-11-16] MEDS: BISACODYL (EC) 5 MG TAB PO ×2 (09:00→21:00)
[2017-11-16] MEDS: ASPIRIN (EC) 81 MG TAB PO (09:00)
[2017-11-16] MEDS: GABAPENTIN 400 MG CAP PO ×3 (09:00→21:00)
[2017-11-16] MEDS: TIOTROPIUM 18 MCG CAPSULE INHA DEV INH (09:00)
[2017-11-16] MEDS: VALSARTAN 160 MG TAB PO (09:00)
[2017-11-16] MEDS: TAMSULOSIN (SR) 0.4 MG CAP PO (21:00)
[2017-11-16] MEDS: ATORVASTATIN 80 MG TAB PO (21:00)
[2017-11-16] MEDS: DEXTROSE 5%-0.9% NACL 1,000 ML IV (21:12)
[2017-11-16] MEDS: LINEZOLID 600 MG/D5W (PMX) 300 ML IVPB (21:12)
[2017-11-17] MEDS: ALBUTEROL 0.083% (NEB) 2.5 MG/3 ML AMP HHN ×6 (00:52→21:28)
[2017-11-17] MEDS: IPRATROPIUM (NEB) 0.5 MG/2.5 ML AMP HHN ×6 (00:52→21:28)
[2017-11-17] MEDS: PANTOPRAZOLE (EC) 40 MG TAB PO (07:00)
[2017-11-17] MEDS: NIFEdipine (XL) 30 MG TAB PO ×2 (09:00→21:00)
[2017-11-17] MEDS: GABAPENTIN 400 MG CAP PO ×3 (09:00→21:00)
[2017-11-17] MEDS: TIOTROPIUM 18 MCG CAPSULE INHA DEV INH (09:00)
[2017-11-17] MEDS: BISACODYL (EC) 5 MG TAB PO ×2 (09:00→21:00)
[2017-11-17] MEDS: AMIODARONE 200 MG TAB PO ×2 (09:00→21:00)
[2017-11-17] MEDS: VALSARTAN 160 MG TAB PO (09:00)
[2017-11-17] MEDS: ASPIRIN (EC) 81 MG TAB PO (09:00)
[2017-11-17 09:07] LABS: ADD MAN DIFF? NO
[2017-11-17 09:18] LABS: ABNORMAL IP MESSAGE 1; BASOPHIL # 0.1 10^3/ul (0.0-0.1); BASOPHILS % 0.2 % (0.0-2.0); EOSINOPHILS # 0.1 10^3/ul (0.0-0.5); EOSINOPHILS % 0.3 % (0.0-7.0); HEMATOCRIT 26.6 % (42.0-52.0); HEMOGLOBIN 7.9 g/dl (14.0-18.0); LYMPHOCYTES # 1.3 10^3/ul (0.8-2.9); LYMPHOCYTES % 6.3 % (15.0-51.0); MEAN CORPUSCULAR HEMOGLOBIN 29.4 pg (29.0-33.0); MEAN CORPUSCULAR HGB CONC 29.7 g/dl (32.0-37.0); MEAN CORPUSCULAR VOLUME 98.9 fl (82.0-101.0); MONOCYTE # 2.5 10^3/ul (0.3-0.9); MONOCYTES % 11.8 % (0.0-11.0); NEUTROPHIL # 16.1 10^3/ul (1.6-7.5); NEUTROPHILS % 76.7 % (39.0-77.0); NUCLEATED RED BLOOD CELLS% 0.1 /100WBC (0.0-0.0); PLATELET COUNT 306 10^3/UL (140-415); POSITIVE DIFF @See below; RED BLOOD COUNT 2.69 10^6/ul (4.70-6.10); RED CELL DISTRIBUTION WIDTH 15.9 % (11.5-14.5)
[2017-11-17 09:54] LABS: ANION GAP 17 (8-16); BLOOD UREA NITROGEN 86 mg/dl (7-20); CALCIUM 8.5 mg/dl (8.4-10.2); CARBON DIOXIDE 29 mmol/L (21-31); CHLORIDE 97 mmol/L (97-110); GLUCOSE 131 mg/dl (70-220); PHOSPHORUS 4.3 mg/dl (2.5-4.9); POTASSIUM 4.7 mmol/L (3.5-5.1); SODIUM 138 mmol/L (135-144)
[2017-11-17 09:55] LABS: CREATININE 6.06 mg/dl (0.61-1.24)
[2017-11-17] MEDS: LINEZOLID 600 MG/D5W (PMX) 300 ML IVPB (11:45)
[2017-11-17] MEDS: EPOETIN 10000 UNITS/1 ML INJ (ESRD) SC (17:13)
[2017-11-17] MEDS: ATORVASTATIN 80 MG TAB PO (21:00)
[2017-11-18] MEDS: LINEZOLID 600 MG/D5W (PMX) 300 ML IVPB ×3 (00:17→20:55)
[2017-11-18] MEDS: ALBUTEROL 0.083% (NEB) 2.5 MG/3 ML AMP HHN ×6 (01:34→20:52)
[2017-11-18] MEDS: IPRATROPIUM (NEB) 0.5 MG/2.5 ML AMP HHN ×6 (01:34→20:52)
[2017-11-18] MEDS: PANTOPRAZOLE (EC) 40 MG TAB PO (04:49)
[2017-11-18] MEDS: AMIODARONE 200 MG TAB PO ×2 (08:49→20:57)
[2017-11-18] MEDS: VALSARTAN 160 MG TAB PO (08:50)
[2017-11-18] MEDS: GABAPENTIN 400 MG CAP PO ×3 (08:50→21:00)
[2017-11-18] MEDS: BISACODYL (EC) 5 MG TAB PO ×2 (08:50→21:00)
[2017-11-18] MEDS: ASPIRIN (EC) 81 MG TAB PO (08:50)
[2017-11-18] MEDS: NIFEdipine (XL) 30 MG TAB PO ×2 (08:50→21:00)
[2017-11-18] MEDS: TIOTROPIUM 18 MCG CAPSULE INHA DEV INH (08:51)
[2017-11-18 14:15] LABS: ADD UMIC YES; UR ASCORBIC ACID NEGATIVE (NEGATIVE); UR BILIRUBIN (Dip) NEGATIVE (NEGATIVE); UR BLOOD (Dip) 2+ mg/dL (NEGATIVE); UR CLARITY CLOUDY (CLEAR); UR COLOR YELLOW (YELLOW); UR GLUCOSE (Dip) 1+ mg/dL (NEGATIVE); UR KETONES (Dip) NEGATIVE (NEGATIVE); UR LEUKOCYTE ESTERASE (Dip) NEGATIVE Leu/ul (NEGATIVE); UR NITRITE (Dip) NEGATIVE (NEGATIVE); UR RBC 12 /HPF (0-5); UR SPECIFIC GRAVITY (Dip) 1.019 (1.003-1.030); UR TOTAL PROTEIN (Dip) 3+ mg/dl (NEGATIVE); UR UROBILINOGEN (Dip) NEGATIVE (NEGATIVE); UR WBC 7 /HPF (0-5)
[2017-11-18] MEDS: DEXTROSE 5%-0.9% NACL 1,000 ML IV (14:17)
[2017-11-18] MEDS: ATORVASTATIN 80 MG TAB PO (21:00)
[2017-11-19] MEDS: IPRATROPIUM (NEB) 0.5 MG/2.5 ML AMP HHN ×6 (01:45→20:09)
[2017-11-19] MEDS: ALBUTEROL 0.083% (NEB) 2.5 MG/3 ML AMP HHN ×6 (01:45→20:09)
[2017-11-19] MEDS: PANTOPRAZOLE (EC) 40 MG TAB PO (03:23)
[2017-11-19 08:22] LABS: ABNORMAL IP MESSAGE 1; HEMATOCRIT 27.4 % (42.0-52.0); HEMOGLOBIN 8.2 g/dl (14.0-18.0); MEAN CORPUSCULAR HEMOGLOBIN 29.6 pg (29.0-33.0); MEAN CORPUSCULAR HGB CONC 29.9 g/dl (32.0-37.0); MEAN CORPUSCULAR VOLUME 98.9 fl (82.0-101.0); NUCLEATED RED BLOOD CELLS% 0.2 /100WBC (0.0-0.0); PLATELET COUNT 342 10^3/UL (140-415); POSITIVE DIFF @See below; RED BLOOD COUNT 2.77 10^6/ul (4.70-6.10); RED CELL DISTRIBUTION WIDTH 15.9 % (11.5-14.5)
[2017-11-19 08:22] LABS: WHITE BLOOD COUNT 34.6 10^3/ul (4.8-10.8)
[2017-11-19 08:31] LABS: ADD MAN DIFF? YES
[2017-11-19 08:39] LABS: ANION GAP 18 (8-16); BLOOD UREA NITROGEN 78 mg/dl (7-20); CALCIUM 8.5 mg/dl (8.4-10.2); CARBON DIOXIDE 28 mmol/L (21-31); CHLORIDE 99 mmol/L (97-110); GLUCOSE 120 mg/dl (70-220); PHOSPHORUS 3.8 mg/dl (2.5-4.9); POTASSIUM 4.8 mmol/L (3.5-5.1); SODIUM 140 mmol/L (135-144)
[2017-11-19 08:51] LABS: CREATININE 5.42 mg/dl (0.61-1.24)
[2017-11-19] MEDS: AMIODARONE 200 MG TAB PO ×2 (09:00→21:00)
[2017-11-19] MEDS: TIOTROPIUM 18 MCG CAPSULE INHA DEV INH (09:00)
[2017-11-19] MEDS: GABAPENTIN 400 MG CAP PO ×3 (09:00→21:00)
[2017-11-19] MEDS: ASPIRIN (EC) 81 MG TAB PO (09:00)
[2017-11-19] MEDS: NIFEdipine (XL) 30 MG TAB PO ×2 (09:00→21:00)
[2017-11-19] MEDS: VALSARTAN 160 MG TAB PO (09:00)
[2017-11-19] MEDS: BISACODYL (EC) 5 MG TAB PO ×2 (09:00→21:00)
[2017-11-19] MEDS: LINEZOLID 600 MG/D5W (PMX) 300 ML IVPB ×2 (09:23→20:44)
[2017-11-19] MEDS: DEXTROSE 5%-0.9% NACL 1,000 ML IV ×2 (10:30→17:30)
[2017-11-19 10:53] LABS: ANISOCYTOSIS 1+ (0-0); BAND NEUTROPHILS #M 2.4 10^3/ul (0.0-0.6); BAND NEUTROPHILS % (M) 7 % (0-4); EOSINOPHILS % (M) 4 % (0-7); LYMPHOCYTES #M 0.3 10^3/ul (0.8-2.9); LYMPHOCYTES % (M) 1 % (15-51); METAMYELOCYTES #M 0.3 10^3/ul (0.0-0.0); METAMYELOCYTES %M 1 % (0-0); MICROCYTOSIS 1+ (0-0); MONOCYTE #M 3.1 10^3/ul (0.3-0.9); MONOCYTES % (M) 9 % (0-11); PLATELET ESTIMATE NORMAL; POLYCHROMASIA 1+ (0-0); SEG NEUT #M 27.8 10^3/ul (1.6-7.5); SEGMENTED NEUTROPHILS (M) % 78 % (39-77); SMUDGE%M 1 % (0-0)
[2017-11-19] MEDS: EPOETIN 10000 UNITS/1 ML INJ (ESRD) SC ×2 (17:00→20:45)
[2017-11-19] MEDS: ALBUMIN HUMAN 25% 100 ML IV (17:35)
[2017-11-19] MEDS: ATORVASTATIN 80 MG TAB PO (21:00)
[2017-11-20] MEDS: ALBUTEROL 0.083% (NEB) 2.5 MG/3 ML AMP HHN ×6 (01:22→21:42)
[2017-11-20] MEDS: IPRATROPIUM (NEB) 0.5 MG/2.5 ML AMP HHN ×6 (01:22→21:42)
[2017-11-20] MEDS: PANTOPRAZOLE (EC) 40 MG TAB PO (07:00)
[2017-11-20] MEDS: VALSARTAN 160 MG TAB PO (09:00)
[2017-11-20] MEDS: TIOTROPIUM 18 MCG CAPSULE INHA DEV INH (09:00)
[2017-11-20] MEDS: ASPIRIN (EC) 81 MG TAB PO (09:00)
[2017-11-20] MEDS: AMIODARONE 200 MG TAB PO ×2 (09:00→21:00)
[2017-11-20] MEDS: BISACODYL (EC) 5 MG TAB PO ×2 (09:00→21:00)
[2017-11-20] MEDS: GABAPENTIN 400 MG CAP PO ×3 (09:00→21:00)
[2017-11-20] MEDS: NIFEdipine (XL) 30 MG TAB PO ×2 (09:00→21:00)
[2017-11-20] MEDS: LINEZOLID 600 MG/D5W (PMX) 300 ML IVPB (09:59)
[2017-11-20] MEDS: ACETAMINOPHEN 1000MG/100ML IV 100 ML IVPB ×2 (11:55→16:00)
[2017-11-20] MEDS: ACETAMINOPHEN 325 MG TAB PO (16:27)
[2017-11-20] MEDS: ATORVASTATIN 80 MG TAB PO (21:00)
[2017-11-21] MEDS: IPRATROPIUM (NEB) 0.5 MG/2.5 ML AMP HHN ×6 (01:34→21:37)
[2017-11-21] MEDS: ALBUTEROL 0.083% (NEB) 2.5 MG/3 ML AMP HHN ×6 (01:34→21:37)
[2017-11-21] MEDS: LINEZOLID 600 MG/D5W (PMX) 300 ML IVPB ×3 (01:48→21:18)
[2017-11-21] MEDS: DEXTROSE 5%-0.9% NACL 1,000 ML IV ×2 (02:30→21:38)
[2017-11-21] MEDS: ACETAMINOPHEN 1000MG/100ML IV 100 ML IVPB ×4 (04:54→22:35)
[2017-11-21] MEDS: PANTOPRAZOLE (EC) 40 MG TAB PO (07:00)
[2017-11-21 08:03] LABS: LACTIC ACID 1.3 mmol/L (0.5-2.0)
[2017-11-21] MEDS: AMIODARONE 200 MG TAB PO ×2 (08:53→21:20)
[2017-11-21] MEDS: TIOTROPIUM 18 MCG CAPSULE INHA DEV INH (08:53)
[2017-11-21] MEDS: VALSARTAN 160 MG TAB PO (08:54)
[2017-11-21] MEDS: NIFEdipine (XL) 30 MG TAB PO ×2 (08:55→22:34)
[2017-11-21] MEDS: GABAPENTIN 400 MG CAP PO ×3 (08:55→21:19)
[2017-11-21] MEDS: BISACODYL (EC) 5 MG TAB PO ×2 (08:55→21:00)
[2017-11-21] MEDS: ASPIRIN (EC) 81 MG TAB PO (08:55)
[2017-11-21 11:47] LABS: ABNORMAL IP MESSAGE 1; POSITIVE DIFF @See below
[2017-11-21 11:54] LABS: HEMATOCRIT 29.4 % (42.0-52.0); MEAN CORPUSCULAR HEMOGLOBIN 29.4 pg (29.0-33.0); MEAN CORPUSCULAR HGB CONC 30.6 g/dl (32.0-37.0); MEAN CORPUSCULAR VOLUME 96.1 fl (82.0-101.0); MEAN PLATELET VOLUME 10.5 fl (7.4-10.4); NUCLEATED RED BLOOD CELLS% 0.1 /100WBC (0.0-0.0); RED BLOOD COUNT 3.06 10^6/ul (4.70-6.10); RED CELL DISTRIBUTION WIDTH 15.8 % (11.5-14.5)
[2017-11-21 11:54] LABS: WHITE BLOOD COUNT 46.1 10^3/ul (4.8-10.8)
[2017-11-21 12:03] LABS: PLATELET COUNT 259 10^3/UL (140-415)
[2017-11-21 12:04] LABS: ADD MAN DIFF? YES
[2017-11-21 12:19] LABS: ANION GAP 19 (8-16); BLOOD UREA NITROGEN 66 mg/dl (7-20); CALCIUM 7.4 mg/dl (8.4-10.2); CARBON DIOXIDE 22 mmol/L (21-31); CHLORIDE 96 mmol/L (97-110); GLUCOSE 115 mg/dl (70-220); POTASSIUM 4.7 mmol/L (3.5-5.1); SODIUM 132 mmol/L (135-144)
[2017-11-21 12:28] LABS: CREATININE 4.65 mg/dl (0.61-1.24)
[2017-11-21 13:17] LABS: ANISOCYTOSIS 1+ (0-0); BAND NEUTROPHILS #M 0.4 10^3/ul (0.0-0.6); BAND NEUTROPHILS % (M) 1 % (0-4); EOSINOPHILS % (M) 2 % (0-7); GIANT THROMBO% (M) 1 % (0-0); LYMPHOCYTES #M 7.3 10^3/ul (0.8-2.9); LYMPHOCYTES % (M) 16 % (15-51); MICROCYTOSIS 1+ (0-0); MONOCYTE #M 0.4 10^3/ul (0.3-0.9); MONOCYTES % (M) 1 % (0-11); PLATELET ESTIMATE NORMAL; POLYCHROMASIA 3+ (0-0); SEG NEUT #M 37.1 10^3/ul (1.6-7.5); SEGMENTED NEUTROPHILS (M) % 80 % (39-77); SMUDGE%M 3 % (0-0)
[2017-11-21] MEDS: ATORVASTATIN 80 MG TAB PO (21:20)
[2017-11-22] MEDS: VANCOMYCIN HCL 250 MG/5ML POSYG PO ×4 (00:16→17:47)
[2017-11-22] MEDS: metroNIDAZOLE 250 MG TAB GTB ×4 (00:52→17:47)
[2017-11-22] MEDS: IPRATROPIUM (NEB) 0.5 MG/2.5 ML AMP HHN ×6 (01:59→20:53)
[2017-11-22] MEDS: ALBUTEROL 0.083% (NEB) 2.5 MG/3 ML AMP HHN ×6 (01:59→20:53)
[2017-11-22] MEDS: ACETAMINOPHEN 1000MG/100ML IV 100 ML IVPB ×4 (04:01→22:33)
[2017-11-22] MEDS: PANTOPRAZOLE (EC) 40 MG TAB PO (06:09)
[2017-11-22 08:39] LABS: WHITE BLOOD COUNT 46.3 10^3/ul (4.8-10.8)
[2017-11-22 08:39] LABS: ABNORMAL IP MESSAGE 1; HEMATOCRIT 26.1 % (42.0-52.0); HEMOGLOBIN 7.6 g/dl (14.0-18.0); MEAN CORPUSCULAR HEMOGLOBIN 29.3 pg (29.0-33.0); MEAN CORPUSCULAR HGB CONC 29.1 g/dl (32.0-37.0); MEAN CORPUSCULAR VOLUME 100.8 fl (82.0-101.0); MEAN PLATELET VOLUME 9.7 fl (7.4-10.4); NUCLEATED RED BLOOD CELLS% 0.1 /100WBC (0.0-0.0); PLATELET COUNT 332 10^3/UL (140-415); POSITIVE DIFF @See below; RED BLOOD COUNT 2.59 10^6/ul (4.70-6.10)
[2017-11-22 08:55] LABS: ADD MAN DIFF? YES
[2017-11-22] MEDS: ASPIRIN (EC) 81 MG TAB PO (09:00)
[2017-11-22] MEDS: TIOTROPIUM 18 MCG CAPSULE INHA DEV INH (09:00)
[2017-11-22] MEDS: GABAPENTIN 400 MG CAP PO ×3 (09:00→21:53)
[2017-11-22] MEDS: AMIODARONE 200 MG TAB PO ×2 (09:00→21:55)
[2017-11-22] MEDS: VALSARTAN 160 MG TAB PO (09:00)
[2017-11-22] MEDS: BISACODYL (EC) 5 MG TAB PO ×2 (09:00→21:52)
[2017-11-22] MEDS: NIFEdipine (XL) 30 MG TAB PO ×2 (09:00→21:56)
[2017-11-22 09:43] LABS: ANISOCYTOSIS 1+ (0-0); BAND NEUTROPHILS #M 1.8 10^3/ul (0.0-0.6); BAND NEUTROPHILS % (M) 4 % (0-4); EOSINOPHILS % (M) 1 % (0-7); HYPOCHROMASIA 1+ (0-0); LYMPHOCYTES #M 3.2 10^3/ul (0.8-2.9); LYMPHOCYTES % (M) 7 % (15-51); MICROCYTOSIS 1+ (0-0); MONOCYTE #M 0.4 10^3/ul (0.3-0.9); MONOCYTES % (M) 1 % (0-11); OVALOCYTES 1+ (0-0); PLATELET ESTIMATE NORMAL; POLYCHROMASIA 1+ (0-0); SEG NEUT #M 41.1 10^3/ul (1.6-7.5); SEGMENTED NEUTROPHILS (M) % 87 % (39-77)
[2017-11-22 09:54] LABS: BLOOD UREA NITROGEN 75 mg/dl (7-20); CALCIUM 7.3 mg/dl (8.4-10.2); CARBON DIOXIDE 21 mmol/L (21-31); CHLORIDE 96 mmol/L (97-110); GLUCOSE 108 mg/dl (70-220); PHOSPHORUS 4.9 mg/dl (2.5-4.9); POTASSIUM 4.9 mmol/L (3.5-5.1); SODIUM 131 mmol/L (135-144)
[2017-11-22 10:09] LABS: CREATININE 5.48 mg/dl (0.61-1.24)
[2017-11-22 10:11] LABS: ANION GAP 14 (8-16)
[2017-11-22] MEDS: ALBUMIN HUMAN 25% 50 ML IV ×2 (10:14→10:16)
[2017-11-22] MEDS: EPOETIN 10000 UNITS/1 ML INJ (ESRD) SC (17:51)
[2017-11-22] MEDS: DEXTROSE 5%-0.9% NACL 1,000 ML IV (17:57)
[2017-11-22] MEDS: ATORVASTATIN 80 MG TAB PO (21:53)
[2017-11-23] MEDS: IPRATROPIUM (NEB) 0.5 MG/2.5 ML AMP HHN ×5 (00:34→20:10)
[2017-11-23] MEDS: ALBUTEROL 0.083% (NEB) 2.5 MG/3 ML AMP HHN ×5 (00:34→20:10)
[2017-11-23] MEDS: metroNIDAZOLE 250 MG TAB GTB ×4 (00:44→17:31)
[2017-11-23] MEDS: VANCOMYCIN HCL 250 MG/5ML POSYG PO ×4 (00:44→17:30)
[2017-11-23] MEDS: ACETAMINOPHEN 1000MG/100ML IV 100 ML IVPB ×4 (05:42→21:08)
[2017-11-23] MEDS: PANTOPRAZOLE (EC) 40 MG TAB PO (06:33)
[2017-11-23] MEDS: TIOTROPIUM 18 MCG CAPSULE INHA DEV INH (09:00)
[2017-11-23] MEDS: AMIODARONE 200 MG TAB PO ×2 (09:00→21:00)
[2017-11-23] MEDS: NIFEdipine (XL) 30 MG TAB PO ×2 (09:00→21:00)
[2017-11-23] MEDS: VALSARTAN 160 MG TAB PO (09:00)
[2017-11-23] MEDS: BISACODYL (EC) 5 MG TAB PO ×2 (09:06→21:10)
[2017-11-23] MEDS: GABAPENTIN 400 MG CAP PO ×3 (09:06→21:14)
[2017-11-23] MEDS: ASPIRIN (EC) 81 MG TAB PO (09:07)
[2017-11-23] MEDS: DEXTROSE 5%-0.9% NACL 1,000 ML IV (16:00)
[2017-11-23] MEDS: METHYLPREDNISOLONE 40 MG INJ IV (21:09)
[2017-11-23] MEDS: ATORVASTATIN 80 MG TAB PO (21:09)
[2017-11-24] MEDS: metroNIDAZOLE 250 MG TAB GTB ×5 (00:57→23:56)
[2017-11-24] MEDS: VANCOMYCIN HCL 250 MG/5ML POSYG PO ×5 (00:57→23:56)
[2017-11-24] MEDS: IPRATROPIUM (NEB) 0.5 MG/2.5 ML AMP HHN ×6 (01:24→20:28)
[2017-11-24] MEDS: ALBUTEROL 0.083% (NEB) 2.5 MG/3 ML AMP HHN ×6 (01:24→20:28)
[2017-11-24] MEDS: ACETAMINOPHEN 1000MG/100ML IV 100 ML IVPB ×4 (04:00→21:43)
[2017-11-24] MEDS: METHYLPREDNISOLONE 40 MG INJ IV ×4 (06:00→21:42)
[2017-11-24] MEDS: BISACODYL (EC) 5 MG TAB PO ×2 (07:26→21:41)
[2017-11-24] MEDS: PANTOPRAZOLE (EC) 40 MG TAB PO (07:59)
[2017-11-24] MEDS: AMIODARONE 200 MG TAB PO ×2 (08:30→21:41)
[2017-11-24] MEDS: GABAPENTIN 400 MG CAP PO ×3 (08:30→21:41)
[2017-11-24] MEDS: NIFEdipine (XL) 30 MG TAB PO ×2 (08:31→21:00)
[2017-11-24] MEDS: VALSARTAN 160 MG TAB PO (08:31)
[2017-11-24] MEDS: ASPIRIN (EC) 81 MG TAB PO (08:31)
[2017-11-24] MEDS: TIOTROPIUM 18 MCG CAPSULE INHA DEV INH (08:32)
[2017-11-24] MEDS: HEPARIN 5,000 UNIT/0.5 ML VIAL SC ×2 (09:00→21:44)
[2017-11-24 09:19] LABS: Arterial Base Excess -4.9 mmol/L (-3.0-3); Arterial Blood Gas Oxygen Sat 82.6 mmHG (95.0-100.0); Arterial COHb 1.7 % (0.0-3.0); Arterial Fraction of Oxyhgb 80.9 % (93.0-99.0); Arterial HCO3 19.4 mmol/L (22.0-26.0); Arterial MetHb 0.3 % (0.0-1.5); Arterial Total Hemglobin 7.9 g/dl (12.0-18.0); Arterial pCO2 32.5 mmhg (35-45); MODE ROOM AIR; Site Right Brachial
[2017-11-24 09:54] LABS: ANION GAP 21 (8-16); BLOOD UREA NITROGEN 74 mg/dl (7-20); CALCIUM 7.1 mg/dl (8.4-10.2); CARBON DIOXIDE 17 mmol/L (21-31); CHLORIDE 101 mmol/L (97-110); GLUCOSE 137 mg/dl (70-220); POTASSIUM 5.6 mmol/L (3.5-5.1); SODIUM 133 mmol/L (135-144)
[2017-11-24 10:00] LABS: WHITE BLOOD COUNT 53.4 10^3/ul (4.8-10.8)
[2017-11-24 10:00] LABS: ABNORMAL IP MESSAGE 1; HEMATOCRIT 26.1 % (42.0-52.0); HEMOGLOBIN 7.4 g/dl (14.0-18.0); MEAN CORPUSCULAR HEMOGLOBIN 29.4 pg (29.0-33.0); MEAN CORPUSCULAR HGB CONC 28.4 g/dl (32.0-37.0); MEAN CORPUSCULAR VOLUME 103.6 fl (82.0-101.0); MEAN PLATELET VOLUME 9.9 fl (7.4-10.4); NUCLEATED RED BLOOD CELLS% 0.1 /100WBC (0.0-0.0); PLATELET COUNT 321 10^3/UL (140-415); POSITIVE DIFF @See below; RED BLOOD COUNT 2.52 10^6/ul (4.70-6.10); RED CELL DISTRIBUTION WIDTH 16.8 % (11.5-14.5)
[2017-11-24 10:03] LABS: CREATININE 5.29 mg/dl (0.61-1.24)
[2017-11-24 10:06] LABS: ADD MAN DIFF? YES
[2017-11-24 10:12] LABS: LACTIC ACID 1.7 mmol/L (0.5-2.0)
[2017-11-24 10:42] LABS: ANISOCYTOSIS 1+ (0-0); BAND NEUTROPHILS #M 3.2 10^3/ul (0.0-0.6); BAND NEUTROPHILS % (M) 6 % (0-4); MICROCYTOSIS 1+ (0-0); PLATELET ESTIMATE NORMAL; POIKILOCYTOSIS 3+ (0-0); POLYCHROMASIA 3+ (0-0); SEG NEUT #M 51.9 10^3/ul (1.6-7.5); SEGMENTED NEUTROPHILS (M) % 94 % (39-77)
[2017-11-24] MEDS: LIDOCAINE 1% (MPF) 5 ML VIAL SC (12:00)
[2017-11-24] MEDS: SOD CHLORIDE 0.9% 100 ML (12:15)
[2017-11-24] MEDS: DEXTROSE 5%-0.9% NACL 1,000 ML IV (13:23)
[2017-11-24] MEDS: ALBUMIN HUMAN 25% 50 ML IV ×2 (17:45→18:30)
[2017-11-24] MEDS: EPOETIN 10000 UNITS/1 ML INJ (ESRD) SC (21:40)
[2017-11-24] MEDS: ATORVASTATIN 80 MG TAB PO (21:41)
[2017-11-25] MEDS: IPRATROPIUM (NEB) 0.5 MG/2.5 ML AMP HHN ×5 (00:46→21:10)
[2017-11-25] MEDS: ALBUTEROL 0.083% (NEB) 2.5 MG/3 ML AMP HHN ×5 (00:46→21:10)
[2017-11-25] MEDS: ACETAMINOPHEN 1000MG/100ML IV 100 ML IVPB ×4 (03:55→21:43)
[2017-11-25] MEDS: METHYLPREDNISOLONE 40 MG INJ IV (06:11)
[2017-11-25] MEDS: metroNIDAZOLE 250 MG TAB GTB ×3 (06:11→17:12)
[2017-11-25] MEDS: PANTOPRAZOLE (EC) 40 MG TAB PO (06:11)
[2017-11-25] MEDS: VANCOMYCIN HCL 250 MG/5ML POSYG PO ×3 (06:12→17:12)
[2017-11-25] MEDS: DEXTROSE 5%-0.9% NACL 1,000 ML IV (06:30)
[2017-11-25 07:16] LABS: WHITE BLOOD COUNT 32.8 10^3/ul (4.8-10.8)
[2017-11-25 07:16] LABS: ABNORMAL IP MESSAGE 1; HEMATOCRIT 21.5 % (42.0-52.0); MEAN CORPUSCULAR HEMOGLOBIN 29.8 pg (29.0-33.0); MEAN CORPUSCULAR HGB CONC 30.2 g/dl (32.0-37.0); MEAN CORPUSCULAR VOLUME 98.6 fl (82.0-101.0); MEAN PLATELET VOLUME 9.8 fl (7.4-10.4); NUCLEATED RED BLOOD CELLS% 0.1 /100WBC (0.0-0.0); PLATELET COUNT 264 10^3/UL (140-415); POSITIVE DIFF @See below; RED BLOOD COUNT 2.18 10^6/ul (4.70-6.10); RED CELL DISTRIBUTION WIDTH 16.6 % (11.5-14.5)
[2017-11-25 07:23] LABS: HEMOGLOBIN 6.5 g/dl (14.0-18.0)
[2017-11-25 07:24] LABS: ADD MAN DIFF? YES
[2017-11-25 07:38] LABS: ANION GAP 14 (8-16); BLOOD UREA NITROGEN 42 mg/dl (7-20); CALCIUM 7.1 mg/dl (8.4-10.2); CARBON DIOXIDE 25 mmol/L (21-31); CHLORIDE 100 mmol/L (97-110); GLUCOSE 141 mg/dl (70-220); PHOSPHORUS 4.7 mg/dl (2.5-4.9); POTASSIUM 4.1 mmol/L (3.5-5.1); SODIUM 135 mmol/L (135-144)
[2017-11-25] MEDS: GABAPENTIN 400 MG CAP PO ×3 (07:57→21:48)
[2017-11-25] MEDS: TIOTROPIUM 18 MCG CAPSULE INHA DEV INH (07:58)
[2017-11-25] MEDS: AMIODARONE 200 MG TAB PO ×2 (07:58→21:49)
[2017-11-25] MEDS: ASPIRIN (EC) 81 MG TAB PO (07:59)
[2017-11-25] MEDS: NIFEdipine (XL) 30 MG TAB PO ×3 (07:59→21:52)
[2017-11-25] MEDS: VALSARTAN 160 MG TAB PO (07:59)
[2017-11-25] MEDS: BISACODYL (EC) 5 MG TAB PO ×2 (07:59→20:38)
[2017-11-25] MEDS: HEPARIN 5,000 UNIT/0.5 ML VIAL SC (08:03)
[2017-11-25 08:51] LABS: ANISOCYTOSIS 1+ (0-0); BAND NEUTROPHILS #M 0.3 10^3/ul (0.0-0.6); BAND NEUTROPHILS % (M) 1 % (0-4); HYPOCHROMASIA 2+ (0-0); LYMPHOCYTES #M 0.6 10^3/ul (0.8-2.9); LYMPHOCYTES % (M) 2 % (15-51); MICROCYTOSIS 1+ (0-0); MONOCYTE #M 0.3 10^3/ul (0.3-0.9); MONOCYTES % (M) 1 % (0-11); PLATELET ESTIMATE NORMAL; POIKILOCYTOSIS 1+ (0-0); POLYCHROMASIA 1+ (0-0); SEG NEUT #M 31.6 10^3/ul (1.6-7.5); SEGMENTED NEUTROPHILS (M) % 96 % (39-77); SMUDGE%M 1 % (0-0)
[2017-11-25 11:45] LABS: IMMEDIATE SPIN CROSSMATCH 1 4
[2017-11-25 17:01] LABS: OCCULT BLOOD STOOL POSITIVE (NEGATIVE)
[2017-11-25] MEDS: ATORVASTATIN 40 MG TAB PO (21:49)
[2017-11-26] MEDS: metroNIDAZOLE 250 MG TAB GTB ×4 (00:23→17:38)
[2017-11-26] MEDS: VANCOMYCIN HCL 250 MG/5ML POSYG PO ×4 (00:23→17:39)
[2017-11-26] MEDS: ALBUTEROL 0.083% (NEB) 2.5 MG/3 ML AMP HHN ×6 (00:47→20:15)
[2017-11-26] MEDS: IPRATROPIUM (NEB) 0.5 MG/2.5 ML AMP HHN ×6 (00:47→20:15)
[2017-11-26] MEDS: ACETAMINOPHEN 1000MG/100ML IV 100 ML IVPB ×4 (05:00→22:53)
[2017-11-26 05:45] LABS: ABNORMAL IP MESSAGE 1; HEMATOCRIT 32.8 % (42.0-52.0); HEMOGLOBIN 10.2 g/dl (14.0-18.0); MEAN CORPUSCULAR HEMOGLOBIN 30.2 pg (29.0-33.0); MEAN CORPUSCULAR HGB CONC 31.1 g/dl (32.0-37.0); MEAN PLATELET VOLUME 9.7 fl (7.4-10.4); NUCLEATED RED BLOOD CELLS% 0.1 /100WBC (0.0-0.0); PLATELET COUNT 281 10^3/UL (140-415); POSITIVE DIFF @See below; RED BLOOD COUNT 3.38 10^6/ul (4.70-6.10); RED CELL DISTRIBUTION WIDTH 17.9 % (11.5-14.5)
[2017-11-26 05:52] LABS: ADD MAN DIFF? YES
[2017-11-26 05:57] LABS: ANION GAP 20 (8-16); BLOOD UREA NITROGEN 59 mg/dl (7-20); CALCIUM 6.9 mg/dl (8.4-10.2); CARBON DIOXIDE 19 mmol/L (21-31); CHLORIDE 99 mmol/L (97-110); GLUCOSE 112 mg/dl (70-220); POTASSIUM 4.7 mmol/L (3.5-5.1); SODIUM 133 mmol/L (135-144)
[2017-11-26 06:12] LABS: CREATININE 3.91 mg/dl (0.61-1.24)
[2017-11-26] MEDS: DEXTROSE 5%-0.9% NACL 1,000 ML IV ×2 (06:22→22:30)
[2017-11-26] MEDS: PANTOPRAZOLE (EC) 40 MG TAB PO (06:22)
[2017-11-26] MEDS: VALSARTAN 160 MG TAB PO (09:00)
[2017-11-26] MEDS: BISACODYL (EC) 5 MG TAB PO ×2 (09:00→21:00)
[2017-11-26] MEDS: AMIODARONE 200 MG TAB PO ×2 (09:00→22:09)
[2017-11-26] MEDS: NIFEdipine (XL) 30 MG TAB PO ×3 (09:00→22:10)
[2017-11-26] MEDS: ALBUMIN HUMAN 25% 100 ML IV (09:35)
[2017-11-26 09:54] LABS: ANISOCYTOSIS 2+ (0-0); BAND NEUTROPHILS #M 0.3 10^3/ul (0.0-0.6); BAND NEUTROPHILS % (M) 1 % (0-4); BURR CELLS 2+ (0-0); GIANT THROMBO% (M) 1 % (0-0); LYMPHOCYTES #M 1.4 10^3/ul (0.8-2.9); LYMPHOCYTES % (M) 4 % (15-51); MONOCYTE #M 0.3 10^3/ul (0.3-0.9); MONOCYTES % (M) 1 % (0-11); OVALOCYTES 1+ (0-0); PLATELET ESTIMATE NORMAL; POIKILOCYTOSIS 2+ (0-0); POLYCHROMASIA 1+ (0-0); SEGMENTED NEUTROPHILS (M) % 94 % (39-77); SMUDGE%M 1 % (0-0); TOXIC GRANULATION 1+ (0-0)
[2017-11-26] MEDS: TIOTROPIUM 18 MCG CAPSULE INHA DEV INH (12:29)
[2017-11-26] MEDS: GABAPENTIN 400 MG CAP PO ×3 (12:29→22:08)
[2017-11-26] MEDS: METHYLPREDNISOLONE 125 MG INJ IV (12:29)
[2017-11-26] MEDS: ASPIRIN (EC) 81 MG TAB PO (12:30)
[2017-11-26 13:44] LABS: OCCULT BLOOD STOOL POSITIVE (NEGATIVE)
[2017-11-26] MEDS: EPOETIN 10000 UNITS/1 ML INJ (ESRD) SC (17:38)
[2017-11-26] MEDS: ATORVASTATIN 40 MG TAB PO (22:08)
[2017-11-26] MEDS: HEPARIN 5,000 UNIT/0.5 ML VIAL SC (22:10)
[2017-11-26] MEDS: CEFOTAXIME 1 GM/50 ML (PMX) 50 ML IVPB (22:11)
[2017-11-27] MEDS: VANCOMYCIN HCL 250 MG/5ML POSYG PO ×4 (00:39→17:02)
[2017-11-27] MEDS: metroNIDAZOLE 250 MG TAB GTB ×4 (00:39→17:02)
[2017-11-27] MEDS: IPRATROPIUM (NEB) 0.5 MG/2.5 ML AMP HHN ×6 (01:11→20:15)
[2017-11-27] MEDS: ALBUTEROL 0.083% (NEB) 2.5 MG/3 ML AMP HHN ×6 (01:11→20:15)
[2017-11-27] MEDS: DEXTROSE 5%-0.9% NACL 1,000 ML IV ×2 (04:36→22:50)
[2017-11-27] MEDS: ACETAMINOPHEN 1000MG/100ML IV 100 ML IVPB ×4 (04:36→21:56)
[2017-11-27] MEDS: PANTOPRAZOLE (EC) 40 MG TAB PO (05:56)
[2017-11-27] MEDS: VALSARTAN 160 MG TAB PO (09:05)
[2017-11-27] MEDS: ASPIRIN (EC) 81 MG TAB PO (09:05)
[2017-11-27] MEDS: GABAPENTIN 400 MG CAP PO ×3 (09:05→20:37)
[2017-11-27] MEDS: AMIODARONE 200 MG TAB PO ×2 (09:05→20:36)
[2017-11-27] MEDS: NIFEdipine (XL) 30 MG TAB PO ×2 (09:06→20:37)
[2017-11-27] MEDS: BISACODYL (EC) 5 MG TAB PO (09:06)
[2017-11-27] MEDS: METHYLPREDNISOLONE 40 MG INJ IV (09:07)
[2017-11-27] MEDS: HEPARIN 5,000 UNIT/0.5 ML VIAL SC ×2 (09:08→20:41)
[2017-11-27] MEDS: TIOTROPIUM 18 MCG CAPSULE INHA DEV INH (09:27)
[2017-11-27] MEDS: morphine 2 MG INJ IV ×4 (16:47→22:50)
[2017-11-27] MEDS: ATORVASTATIN 40 MG TAB PO (20:35)
[2017-11-27] MEDS: CEFOTAXIME 1 GM/50 ML (PMX) 50 ML IVPB (20:44)
[2017-11-28] MEDS: metroNIDAZOLE 250 MG TAB GTB ×4 (00:36→17:20)
[2017-11-28] MEDS: VANCOMYCIN HCL 250 MG/5ML POSYG PO ×4 (00:36→17:20)
[2017-11-28] MEDS: morphine 2 MG INJ IV ×9 (00:39→22:01)
[2017-11-28] MEDS: ALBUTEROL 0.083% (NEB) 2.5 MG/3 ML AMP HHN ×6 (02:09→20:00)
[2017-11-28] MEDS: IPRATROPIUM (NEB) 0.5 MG/2.5 ML AMP HHN ×6 (02:10→20:00)
[2017-11-28] MEDS: ACETAMINOPHEN 1000MG/100ML IV 100 ML IVPB ×4 (04:21→22:39)
[2017-11-28] MEDS: PANTOPRAZOLE (EC) 40 MG TAB PO (05:17)
[2017-11-28 05:56] LABS: ABNORMAL IP MESSAGE 1; HEMATOCRIT 39.9 % (42.0-52.0); HEMOGLOBIN 12.4 g/dl (14.0-18.0); MEAN CORPUSCULAR HEMOGLOBIN 30.5 pg (29.0-33.0); MEAN CORPUSCULAR HGB CONC 31.1 g/dl (32.0-37.0); MEAN PLATELET VOLUME 9.9 fl (7.4-10.4); NUCLEATED RED BLOOD CELLS% 0.3 /100WBC (0.0-0.0); PLATELET COUNT 315 10^3/UL (140-415); POSITIVE DIFF @See below; RED BLOOD COUNT 4.07 10^6/ul (4.70-6.10); RED CELL DISTRIBUTION WIDTH 18.8 % (11.5-14.5)
[2017-11-28 05:56] LABS: WHITE BLOOD COUNT 35.8 10^3/ul (4.8-10.8)
[2017-11-28 06:02] LABS: ADD MAN DIFF? YES
[2017-11-28 06:18] LABS: AMMONIA < 9 umol/l (9-30)
[2017-11-28 06:30] LABS: ALANINE AMINOTRANSFERASE 39 IU/L (13-69); ALBUMIN 2.5 g/dl (3.3-4.9); ALBUMIN/GLOBULIN RATIO 0.92; ALKALINE PHOSPHATASE 163 IU/L (42-121); ANION GAP 18 (8-16); ASPARTATE AMINO TRANSFERASE 35 IU/L (15-46); BLOOD UREA NITROGEN 55 mg/dl (7-20); CARBON DIOXIDE 19 mmol/L (21-31); CHLORIDE 100 mmol/L (97-110); GLUCOSE 136 mg/dl (70-220); MAGNESIUM 1.8 mg/dl (1.7-2.5); POTASSIUM 4.5 mmol/L (3.5-5.1); SODIUM 132 mmol/L (135-144); TOTAL PROTEIN 5.2 g/dl (6.1-8.1)
[2017-11-28 06:32] LABS: IRON 34 ug/dl (35-150)
[2017-11-28 06:39] LABS: CREATININE 3.65 mg/dl (0.61-1.24)
[2017-11-28 06:41] LABS: % IRON SATURATION 32 % SAT (22-52); TOTAL IRON BINDING CAPACITY 107 ug/dl (241-421)
[2017-11-28 07:15] LABS: ALANINE AMINOTRANSFERASE 39 IU/L (13-69); ALBUMIN 2.5 g/dl (3.3-4.9); ALKALINE PHOSPHATASE 152 IU/L (42-121); ASPARTATE AMINO TRANSFERASE 43 IU/L (15-46); TOTAL PROTEIN 5.1 g/dl (6.1-8.1)
[2017-11-28 08:59] LABS: ANISOCYTOSIS 2+ (0-0); BAND NEUTROPHILS % (M) 3 % (0-4); GIANT THROMBO% (M) 1 % (0-0); LYMPHOCYTES % (M) 3 % (15-51); MONOCYTE #M 0.7 10^3/ul (0.3-0.9); MONOCYTES % (M) 2 % (0-11); PLATELET ESTIMATE NORMAL; POIKILOCYTOSIS 3+ (0-0); POLYCHROMASIA 1+ (0-0); SEG NEUT #M 33.3 10^3/ul (1.6-7.5); SEGMENTED NEUTROPHILS (M) % 92 % (39-77); SMUDGE%M 3 % (0-0)
[2017-11-28] MEDS ORDERED: GABAPENTIN 100 MG CAP PO (09:00)
[2017-11-28] MEDS: TIOTROPIUM 18 MCG CAPSULE INHA DEV INH (09:06)
[2017-11-28] MEDS: METHYLPREDNISOLONE 40 MG INJ IV (09:06)
[2017-11-28] MEDS: NIFEdipine (XL) 30 MG TAB PO ×2 (09:07→20:38)
[2017-11-28] MEDS: VALSARTAN 160 MG TAB PO (09:08)
[2017-11-28] MEDS: ASPIRIN (EC) 81 MG TAB PO (09:08)
[2017-11-28] MEDS: AMIODARONE 200 MG TAB PO ×2 (09:08→20:37)
[2017-11-28] MEDS: GABAPENTIN 300 MG CAP PO ×3 (09:09→20:35)
[2017-11-28] MEDS: HEPARIN 5,000 UNIT/0.5 ML VIAL SC ×2 (09:11→20:37)
[2017-11-28] MEDS: IOHEXOL 350MG/ML 50 ML BTL (10:25)
[2017-11-28] MEDS: SOD CHLORIDE 0.9% 100 ML (10:25)
[2017-11-28] MEDS: IOHEXOL 100 ML (10:25)
[2017-11-28] MEDS: ALBUMIN HUMAN 25% 100 ML IV ×2 (11:57→13:27)
[2017-11-28 13:34] LABS: LACTIC ACID 1.4 mmol/L (0.5-2.0)
[2017-11-28] MEDS: CLONIDINE 0.1 MG/24 HR PATCH TRANSDERM (15:18)
[2017-11-28 16:10] LABS: LACTIC ACID 2.2 mmol/L (0.5-2.0)
[2017-11-28 19:25] LABS: HEPATITIS B CORE ANTIBODY NEGATIVE (NEGATIVE)
[2017-11-28 19:25] LABS: HEPATITIS C VIRAL ANTIBODY NEGATIVE (NEGATIVE)
[2017-11-28 19:36] LABS: HIV 1&2 ANTIBODY NEGATIVE (NEGATIVE)
[2017-11-28] MEDS: ATORVASTATIN 40 MG TAB PO (20:35)
[2017-11-28] MEDS: CEFOTAXIME 1 GM/50 ML (PMX) 50 ML IVPB (21:55)
[2017-11-28] MEDS: DEXTROSE 5%-0.9% NACL 1,000 ML IV (21:56)
[2017-11-28] MEDS ORDERED: GENTAMICIN 90 MG in SOD CHLORIDE 0.9% 50 ML IVPB (23:45)
[2017-11-29] MEDS: ALBUTEROL 0.083% (NEB) 2.5 MG/3 ML AMP HHN ×5 (00:11→21:26)
[2017-11-29] MEDS: IPRATROPIUM (NEB) 0.5 MG/2.5 ML AMP HHN ×5 (00:11→21:26)
[2017-11-29] MEDS: metroNIDAZOLE 250 MG TAB GTB ×3 (00:23→12:00)
[2017-11-29] MEDS: VANCOMYCIN HCL 250 MG/5ML POSYG PO ×3 (00:23→12:00)
[2017-11-29] MEDS: GENTAMICIN 120 MG in SOD CHLORIDE 0.9% 100 ML IV (01:20)
[2017-11-29] MEDS: ACETAMINOPHEN 1000MG/100ML IV 100 ML IVPB ×4 (04:02→22:31)
[2017-11-29 06:03] LABS: ADD MAN DIFF? NO
[2017-11-29 06:08] LABS: ABNORMAL IP MESSAGE 1; BASOPHILS % 0.1 % (0.0-2.0); HEMOGLOBIN 9.9 g/dl (14.0-18.0); LYMPHOCYTES # 0.8 10^3/ul (0.8-2.9); LYMPHOCYTES % 3.6 % (15.0-51.0); MEAN CORPUSCULAR HEMOGLOBIN 30.8 pg (29.0-33.0); MEAN CORPUSCULAR HGB CONC 30.9 g/dl (32.0-37.0); MEAN CORPUSCULAR VOLUME 99.7 fl (82.0-101.0); MEAN PLATELET VOLUME 10.5 fl (7.4-10.4); MONOCYTE # 0.4 10^3/ul (0.3-0.9); NEUTROPHIL # 20.3 10^3/ul (1.6-7.5); NUCLEATED RED BLOOD CELLS # 0.1 10^3/ul (0.0-0.0); NUCLEATED RED BLOOD CELLS% 0.2 /100WBC (0.0-0.0); PLATELET COUNT 194 10^3/UL (140-415); POSITIVE DIFF @See below; RED BLOOD COUNT 3.21 10^6/ul (4.70-6.10); RED CELL DISTRIBUTION WIDTH 18.9 % (11.5-14.5)
[2017-11-29 06:08] LABS: WHITE BLOOD COUNT 21.8 10^3/ul (4.8-10.8)
[2017-11-29 06:12] LABS: NEUTROPHILS % 93.2 % (39.0-77.0)
[2017-11-29] MEDS: PANTOPRAZOLE (EC) 40 MG TAB PO (06:12)
[2017-11-29 06:58] LABS: ANION GAP 15 (8-16); BLOOD UREA NITROGEN 38 mg/dl (7-20); CALCIUM 6.8 mg/dl (8.4-10.2); CARBON DIOXIDE 22 mmol/L (21-31); CHLORIDE 97 mmol/L (97-110); GLUCOSE 115 mg/dl (70-220); PHOSPHORUS 5.6 mg/dl (2.5-4.9); POTASSIUM 4.3 mmol/L (3.5-5.1); SODIUM 130 mmol/L (135-144)
[2017-11-29] MEDS ORDERED: ALBUMIN HUMAN 25% 100 ML IV (08:00)
[2017-11-29] MEDS: TIOTROPIUM 18 MCG CAPSULE INHA DEV INH (08:58)
[2017-11-29] MEDS: AMIODARONE 200 MG TAB PO ×2 (08:58→21:00)
[2017-11-29] MEDS: VALSARTAN 160 MG TAB PO (08:59)
[2017-11-29] MEDS: GABAPENTIN 300 MG CAP PO ×2 (08:59→13:00)
[2017-11-29] MEDS: ASPIRIN (EC) 81 MG TAB PO (08:59)
[2017-11-29] MEDS: NIFEdipine (XL) 30 MG TAB PO ×2 (09:00→21:00)
[2017-11-29] MEDS: DEXTROSE 5%-0.9% NACL 1,000 ML IV (21:13)
[2017-11-29] MEDS ORDERED: morphine (DRIP) 100 MG/100 ML 100 ML IV (22:00)
[2017-11-29] MEDS: morphine (DRIP) 100 MG/100 ML 100 ML IV (23:41)
[2017-11-30] MEDS: ALBUTEROL 0.083% (NEB) 2.5 MG/3 ML AMP HHN ×5 (00:59→20:57)
[2017-11-30] MEDS: IPRATROPIUM (NEB) 0.5 MG/2.5 ML AMP HHN ×5 (00:59→20:57)
[2017-11-30] MEDS: ACETAMINOPHEN 1000MG/100ML IV 100 ML IVPB ×4 (04:18→22:00)
[2017-11-30] MEDS ORDERED: GENTAMICIN IVPB (07:00)
[2017-11-30] MEDS ORDERED: DEXTROSE 5% IVPB (07:00)
[2017-11-30] MEDS: TIOTROPIUM 18 MCG CAPSULE INHA DEV INH (09:00)
[2017-11-30] MEDS: morphine (DRIP) 100 MG/100 ML 100 ML IV ×3 (09:09→14:35)
[2017-12-01] MEDS: IPRATROPIUM (NEB) 0.5 MG/2.5 ML AMP HHN ×6 (00:33→21:16)
[2017-12-01] MEDS: ALBUTEROL 0.083% (NEB) 2.5 MG/3 ML AMP HHN ×6 (00:33→21:16)
[2017-12-01] MEDS: ACETAMINOPHEN 1000MG/100ML IV 100 ML IVPB ×2 (04:00→10:00)
[2017-12-01] MEDS: morphine (DRIP) 100 MG/100 ML 100 ML IV (04:42)
[2017-12-01] MEDS: TIOTROPIUM 18 MCG CAPSULE INHA DEV INH (09:00)
[2017-12-01] MEDS: DEXTROSE 5%-0.9% NACL 1,000 ML IV (10:30)
== END 2017-12-02 03:35 | disposition hospice, inpatient (51) | DRG 299 ==
LOC: TEL 11-04 00:16 → PP2 11-25 12:58 → E/R 20:46
PROC: 02HV33Z Insertion of Infusion Device into Superior Vena Cava, Percutaneous Approach (ICD-10-PCS; principal; 2017-11-24)
PROC: 30233N1 Transfusion of Nonautologous Red Blood Cells into Peripheral Vein, Percutaneous Approach (ICD-10-PCS; 2017-11-25)
DX: I70.268 Atherosclerosis of native arteries of extremities with gangrene, other extremity (principal); N18.6 End stage renal disease; J69.0 Pneumonitis due to inhalation of food and vomit; R65.20 Severe sepsis without septic shock; J96.21 Acute and chronic respiratory failure with hypoxia; R40.20 Unspecified coma; G93.41 Metabolic encephalopathy; A41.9 Sepsis, unspecified organism; G92 Toxic encephalopathy; J96.22 Acute and chronic respiratory failure with hypercapnia; G93.1 Anoxic brain damage, not elsewhere classified; I13.2 Hypertensive heart and chronic kidney disease with heart failure and with stage 5 chronic kidney disease, or end stage renal disease; K56.699 Other intestinal obstruction unspecified as to partial versus complete obstruction; E44.0 Moderate protein-calorie malnutrition; I50.32 Chronic diastolic (congestive) heart failure; I77.2 Rupture of artery; J98.11 Atelectasis; N39.0 Urinary tract infection, site not specified; B96.7 Clostridium perfringens [C. perfringens] as the cause of diseases classified elsewhere; E11.52 Type 2 diabetes mellitus with diabetic peripheral angiopathy with gangrene; F41.8 Other specified anxiety disorders; E11.22 Type 2 diabetes mellitus with diabetic chronic kidney disease; E11.51 Type 2 diabetes mellitus with diabetic peripheral angiopathy without gangrene; E78.5 Hyperlipidemia, unspecified; N40.0 Benign prostatic hyperplasia without lower urinary tract symptoms; G47.00 Insomnia, unspecified; M62.81 Muscle weakness (generalized); D63.1 Anemia in chronic kidney disease; M19.91 Primary osteoarthritis, unspecified site; I25.10 Atherosclerotic heart disease of native coronary artery without angina pectoris; R63.4 Abnormal weight loss; R53.81 Other malaise; R63.1 Polydipsia; R31.9 Hematuria, unspecified; R53.83 Other fatigue; J44.9 Chronic obstructive pulmonary disease, unspecified; I95.9 Hypotension, unspecified; I48.91 Unspecified atrial fibrillation; K62.89 Other specified diseases of anus and rectum; K52.9 Noninfective gastroenteritis and colitis, unspecified; Z51.5 Encounter for palliative care; Z87.440 Personal history of urinary (tract) infections; Z66 Do not resuscitate; Z99.2 Dependence on renal dialysis; Z68.24 Body mass index [BMI] 24.0-24.9, adult
CPT/HCPCS: 36415; 36430; 36569; 36600; 70450; 71045; 73120; 73130-LT; 74018; 75635; 76937; 80048; 80053; 80076; 80202; 81001; 82140; 82270; 82533; 82803; 82962; 83540; 83605; 83690; 83735; 84100; 84132; 84443; 85025; 85610; 85730; 86703; 86704; 86706; 86803; 86850; 86900; 86901; 86920; 87040; 87075; 87081; 87086; 87340; 90935; 92526; 92610; 93005; 93306; 93971; 94640; 94664; 96374; 96375; 96376; 97110; 97162; 97530; 99285-25